=== PATIENT | male | born 1990 | race Caucasian/White ===

== ENCOUNTER 2024-11-26 18:59 | Inpatient (IN) | payer BC, OTHER ==
[2024-11-26 20:37] LABS: Basophils # (A) 0.05 10*3/uL (0.00-0.10); Basophils % (A) 0.3 %; Eosinophils # (A) 0.02 10*3/uL (0.04-0.35); Eosinophils % (A) 0.1 %; HCT 46.7 % (39.6-50.0); HGB 15.4 g/dL (13.0-17.0); Lymphocytes % (A) 9.6 %; MCH 25.9 pg (27.0-32.0); MCV 78.5 fL (80.0-97.0); Monocytes # (A) 0.59 10*3/uL (0.20-1.00); Monocytes % (A) 3.6 %; Neutrophils # (A) 14.26 10*3/uL (1.80-7.70); Platelet Count 450 10*3/uL (140-440); RBC 5.95 10*6/uL (4.40-5.60); RDW 12.8 % (11.5-14.5); WBC 16.59 10*3/uL (4.50-10.00)
[2024-11-26 20:48] LABS: ALT 41 U/L (4-49); African American GFR (CKD) >90 (>60 ml/min/1.73 sqM); Amylase 42 U/L (30-110); Anion Gap 9 mmol/L; Blood Urea Nitrogen 11 mg/dL (9-20); Calcium 9.8 mg/dL (8.4-10.2); Carbon Dioxide 30 mmol/L (22-30); Chloride 100 mmol/L (98-107); Glucose 174 mg/dL (74-99); Lipase 63 U/L (23-300); Non-African American GFR(CKD) >90 (>60 ml/min/1.73 sqM); Sodium 139 mmol/L (137-145); Total Bilirubin 1.3 mg/dL (0.2-1.3)
[2024-11-26 20:51] LABS: AST 43 U/L (17-59); Albumin 4.8 g/dL (3.5-5.0); Alkaline Phosphatase 107 U/L (38-126); Appearance,Urine Cloudy (Clear); Bilirubin,Urine Negative (Negative); Blood,Urine Negative (Negative); Color,Urine Yellow; Glucose,Urine (UA) Trace (Negative); Ketones,Urine 1+ (Negative); Leukocyte Esterase,Urine Negative (Negative); Mucus,Urine Many /hpf; Nitrite,Urine Negative (Negative); PH, Urine 6.5 (5.0-8.0); Potassium 5.4 mmol/L (3.5-5.1); Protein,Urine 1+ (Negative); RBC,Urine <1 /hpf (0-5); Specific Gravity,Urine 1.037 (1.001-1.035); Squamous Epithelial Cell,Urine 4 /hpf (0-4); Total Protein 8.9 g/dL (6.3-8.2); WBC,Urine 9 /hpf (0-5)
[2024-11-26] MEDS: SODIUM ZIRCONIUM CYCLOSILICATE 10 GM PACKET PO ONE (21:19)
--- NOTE | 2024-11-26 21:21 | ED ---
Abdominal Pain HPI - General Source: patient, RN notes reviewed Mode of arrival: ambulatory Limitations: no limitations - History of Present Illness MD Complaint: abdominal pain Onset/Timin -: days(s) Location: diffuse Severity scale (1-10): 8 Quality: stabbing Consistency: intermittent Worsens With: eating Context: possible food poisoning Associated Symptoms: nausea, vomiting, constipation <Olvin Mcintosh - Last Filed: 11/27/24 11:17> <Taty Aguilera - Last Filed: 12/02/24 14:35> - General Chief Complaint: Abdominal Pain Stated Complaint: abd pain Time Seen by Provider: 11/26/24 19:17 - History of Present Illness Initial Comments: This is a 34-year-old male presenting for abdominal pain (8/10) since last night. Patient states pain is diffuse and stabbing with associated postprandial nausea/vomiting. Patient states he was able to have a small bowel movement today otherwise noting constipation for the past 3 days. Patient endorses some concern for food poisoning after eating pizza. Denies [id number] medication use. Denies chest pain, dyspnea, hematemesis, diarrhea, hematochezia, melena, anorexia. (Olvin Mcintosh) - Related Data Home Medications Medication Instructions Recorded Confirmed No Known Home Medications 11/27/24 11/27/24 Allergies Allergy/AdvReac Type Severity Reaction Status Date / Time No Known Allergies Allergy Verified 11/27/24 09:21 Review of Systems ROS Other: All systems not noted in ROS Statement are negative. <Olvin Mcintosh - Last Filed: 11/27/24 11:17> ROS Other: All systems not noted in ROS Statement are negative. <Taty Aguilera - Last Filed: 12/02/24 14:35> ROS Statement: Those systems with pertinent positive or pertinent negative responses have been documented in the HPI. Past Medical History Past Medical History: No Reported History History of Any Multi-Drug Resistant Organisms: None Reported Additional Past Surgical History / Comment(s): TUBES IN EARS Past Psychological History: Anxiety Past Alcohol Use History: None Reported Past Drug Use History: None Reported <Olvin Mcintosh - Last Filed: 11/27/24 11:17> General Exam Limitations: no limitations General appearance: alert, in no apparent distress Head exam: Present: atraumatic, normocephalic, normal inspection Eye exam: Present: normal appearance, PERRL, EOMI. Absent: scleral icterus, conjunctival injection, periorbital swelling ENT exam: Present: normal exam, mucous membranes moist Neck exam: Present: normal inspection. Absent: tenderness, meningismus, lymphadenopathy Respiratory exam: Present: normal lung sounds bilaterally. Absent: respiratory distress, wheezes, rales, rhonchi, stridor Cardiovascular Exam: Present: regular rate, normal rhythm, normal heart sounds. Absent: systolic murmur, diastolic murmur, rubs, gallop, clicks GI/Abdominal exam: Present: soft, distended, diminished bowel sounds, hypoactive bowel sounds. Absent: tenderness (Nontender throughout with palpation), guarding, rebound, rigid Extremities exam: Present: normal inspection, full ROM, normal capillary refill. Absent: tenderness, pedal edema, joint swelling, calf tenderness Back exam: Present: normal inspection Neurological exam: Present: alert, oriented X3, CN II-XII intact Psychiatric exam: Present: normal affect, normal mood Skin exam: Present: warm, dry, intact, normal color. Absent: rash <Olvin Mcintosh - Pravin Filed: 11/27/24 11:17> Course Vital Signs 11/26/24 11/26/24 11/27/24 19:13 23:46 02:00 Temperature 98.2 F Pulse Rate 77 81 80 Respiratory 17 18 20 Rate Blood Pressure 116/76 122/86 124/80 O2 Sat by Pulse 98 99 98 Oximetry 11/27/24 11/27/24 11/27/24 05:39 07:45 10:55 Temperature 98.8 F 97.8 F Pulse Rate 78 80 73 Respiratory 18 18 18 Rate Blood Pressure 117/66 123/68 124/64 O2 Sat by Pulse 97 98 95 Oximetry 11/27/24 11/27/24 11/27/24 12:22 18:00 20:14 Temperature Pulse Rate 79 66 70 Respiratory 16 14 16 Rate Blood Pressure 125/69 106/74 123/82 O2 Sat by Pulse 95 100 97 Oximetry Medical Decision Making - Lab Data Result diagrams: 11/26/24 20:30 11/27/24 02:00 <Olvin Mcintosh - Pravin Filed: 11/27/24 11:17> - Lab Data Result diagrams: 12/02/24 05:31 12/02/24 05:31 <Taty Aguilera - Last Filed: 12/02/24 14:35> - Medical Decision Making Was pt. sent in by a medical professional or institution (RAUL Shin, [employer], urgent care, hospital, or [place] health [facility] facility...) When possible be specific @ -No Did you speak to anyone other than the patient for history (EMS, parent, family, police, friend...)? What history was obtained from this source @ -No Did you review nursing and triage notes (agree or disagree)? Why? @ -I reviewed and agree with nursing and triage notes Were old charts reviewed (outside hosp., previous admission, EMS record, old EKG, old radiological studies, urgent care reports/EKG's, [place] health care facility records)? Report findings @ -No old charts were reviewed Differential Diagnosis (chest pain, altered mental status, abdominal pain women, abdominal pain men, vaginal bleeding, weakness, fever, dyspnea, syncope, headache, dizziness, GI bleed, back pain, seizure, CVA, palpatations, mental health, musculoskeletal)? @ -Differential Abdominal Pain Men: Appendicitis, cholecystitis, diverticulosis, ischemic bowel, pancreatitis, hepatitis, UTI, gastroenteritis, AAA, incarcerated hernia, bowel obstruction, constipation, inflammatory bowel, hepatitis, peptic ulcer disease, splenic infarction, perforated viscus, testicular torsion, this is not meant to be an all-inclusive list EKG interpreted by me (3pts min.). @ -Not done X-rays interpreted by me (1pt min.). @ - KUB shows mildly dilated left upper quadrant small bowel loop with air-fluid level indicating possible developing partial small bowel obstruction. CT interpreted by me (1pt min.). 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 Small bowel obstruction also noted. Hepatic steatosis and diffuse colonic diverticulosis. U/S interpreted by me (1pt. min.). @ -None done What testing was considered but not performed or refused? (CT, X-rays, U/S, labs)? Why? @ -None What meds were considered but not given or refused? Why? @ -None Did you discuss the management of the patient with other professionals (professionals i.e. RAUL Shin, [employer], lab, RT, psych nurse, social work manager, cutter operator asbestos shingle, teacher, conservation officer, casework manager)? Give summary @ -No Was smoking cessation discussed for >3mins.? @ -No Was critical care preformed (if so, how long)? @ -No Were there social determinants of health that impacted care today? How? (Homelessness, low income, unemployed, alcoholism, drug addiction, transportation, low edu. Level, literacy, decrease access to med. care, retirement, rehab)? @ -No Was there de-escalation of care discussed even if they declined (Discuss DNR or withdrawal of care, Hospice)? DNR status @ -No What co-morbidities impacted this encounter? (DM, HTN, Smoking, COPD, CAD, Cancer, CVA, ARF, Chemo, Hep., AIDS, mental health diagnosis, sleep apnea, morbid obesity)? @ -None Was patient admitted / discharged? Hospital course, mention meds given and route, prescriptions, significant lab abnormalities, going to OR and other pertinent info. @ -However positive for leukocytosis 16.59 with left shift, hyperkalemia 5.4, hyperglycemia 174 and unremarkable UA. Lactic acid, amylase, lipase and LFTs unremarkable. KUB shows mildly dilated left upper quadrant small bowel loop with air-fluid level indicating possible developing partial small bowel obstruction. 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 Small bowel obstruction also noted. Hepatic steatosis and diffuse colonic diverticulosis. Patient initially provided IV normal saline, p.o. Lokelma, magnesium citrate and Bentyl. Care passed to attending Dr. Aguilera prior to radiologist reading of abdominal CT scan. Patient will be admitted to inpatient upon discovery of small bowel obstruction. Discussed patient with Dr. Aguilera. Undiagnosed new problem with uncertain prognosis? @ -No Drug Therapy requiring intensive monitoring for toxicity (Heparin, Nitro, Insulin, Cardizem)? @ -No Were any procedures done? @ -No Diagnosis/symptom? @ -Small bowel obstruction Acute, or Chronic, or Acute on Chronic? @ -Acute Uncomplicated (without systemic symptoms) or Complicated (systemic symptoms)? @ -Uncomplicated Side effects of treatment? @ -No Exacerbation, Progression, or Severe Exacerbation? @ -No Poses a threat to life or bodily function? How? (Chest pain, USA, PR, pneumonia, PE, COPD, DKA, ARF, appy, cholecystitis, CVA, Diverticulitis, Homicidal, Suicidal, threat to staff... and all critical care pts) @ -Small bowel obstruction (Olvin Mcintosh) Patient was presented to and signed out to myself at completion of Ej JERNIGAN's shift pending CT abdomen/pelvis. Of note, patient was presented to myself at time of sign out, after initial workup and treatment had been completed, including administration of bentyl, lokelma and mag citrate. CT read by radiologist as a small gallbladder with abnormal connection to the duodenum may represent cholecystic fistula, small bowel obstruction. Page Dr. Etienne for further recs. Case discussed with Dr. Etienne, who kindly accepted patient for admission. Patient will remain NPO with IV fluids, pain control and IV antibiotics ordered. Updated patient to findings and plan of care, he is agreeable with plan. Patient admitted to Dr. Etienne in stable condition. 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 @ -Acute Uncomplicated (without systemic symptoms) or Complicated (systemic symptoms)? @complicated Side effects of treatment? @ -No Exacerbation, Progression, or Severe Exacerbation? @ -No Poses a threat to life or bodily function? How? (Chest pain, USA, PR, pneumonia, PE, COPD, DKA, ARF, appy, cholecystitis, CVA, Diverticulitis, Homicidal, Suicidal, threat to staff... and all critical care pts) @ -Yes, if left untreated could result in perforation and septic shock (Taty Agiulera) - Lab Data Lab Results 11/26/24 11/26/24 11/26/24 Range/Units 20:30 20:30 20:30 WBC 16.59 H (4.50-10.00) 10*3/uL RBC 5.95 H (4.40-5.60) 10*6/uL Hgb 15.4 (13.0-17.0) g/dL Hct 46.7 (39.6-50.0) % MCV 78.5 L (80.0-97.0) fL MCH 25.9 L (27.0-32.0) pg MCHC 33.0 (32.0-37.0) g/dL Plt Count 450 H (140-440) 10*3/uL MPV 9.0 L (9.5-12.2) fL Immature Gran % (Auto) 0.4 % Neutrophils % 86.0 % Lymphocytes % 9.6 % Monocytes % 3.6 % Eosinophils % 0.1 % Basophils % 0.3 % Immature Gran # 0.07 H (0.00-0.04) 10*3/uL Neutrophils # 14.26 H (1.80-7.70) 10*3/uL Lymphocytes # 1.60 (0.90-5.00) 10*3/uL Monocytes # 0.59 (0.20-1.00) 10*3/uL Eosinophils # 0.02 L (0.04-0.35) 10*3/uL Basophils # 0.05 (0.00-0.10) 10*3/uL Sodium 139 (137-145) mmol/L Potassium 5.4 H (3.5-5.1) mmol/L Chloride 100 (98-107) mmol/L Carbon Dioxide 30 (22-30) mmol/L Anion Gap 9 mmol/L BUN 11 (9-20) mg/dL Creatinine 0.59 L (0.66-1.25) mg/dL Est GFR (CKD-EPI)AfAm >90 (>60 ml/min/1.73 sqM) Est GFR (CKD-EPI)NonAf >90 (>60 ml/min/1.73 sqM) Glucose 174 H (74-99) mg/dL Plasma Lactic Acid Kj (0.7-2.0) mmol/L Calcium 9.8 (8.4-10.2) mg/dL Total Bilirubin 1.3 (0.2-1.3) mg/dL AST 43 (17-59) U/L ALT 41 (4-49) U/L Alkaline Phosphatase 107 (38-126) U/L Total Protein 8.9 H (6.3-8.2) g/dL Albumin 4.8 (3.5-5.0) g/dL Amylase 42 (30-110) U/L Lipase 63 (23-300) U/L Urine Color Yellow Urine Appearance Cloudy (Clear) Urine pH 6.5 (5.0-8.0) Ur Specific [place] 1.037 H (1.001-1.035) Urine Protein 1+ H (Negative) Urine Glucose (UA) Trace H (Negative) Urine Ketones 1+ H (Negative) Urine Blood Negative (Negative) Urine Nitrite Negative (Negative) Urine Bilirubin Negative (Negative) Urine Urobilinogen 3.0 (<2.0) mg/dL Ur Leukocyte Esterase Negative (Negative) Urine RBC <1 (0-5) /hpf Urine WBC 9 H (0-5) /hpf Ur Squamous Epith Cells 4 (0-4) /hpf Urine Mucus Many H (None) /hpf 11/26/24 11/27/24 Range/Units 20:30 02:00 WBC (4.50-10.00) 10*3/uL RBC (4.40-5.60) 10*6/uL Hgb (13.0-17.0) g/dL Hct (39.6-50.0) % MCV (80.0-97.0) fL MCH (27.0-32.0) pg MCHC (32.0-37.0) g/dL Plt Count (140-440) 10*3/uL MPV (9.5-12.2) fL Immature Gran % (Auto) % Neutrophils % % Lymphocytes % % Monocytes % % Eosinophils % % Basophils % % Immature Gran # (0.00-0.04) 10*3/uL Neutrophils # (1.80-7.70) 10*3/uL Lymphocytes # (0.90-5.00) 10*3/uL Monocytes # (0.20-1.00) 10*3/uL Eosinophils # (0.04-0.35) 10*3/uL Basophils # (0.00-0.10) 10*3/uL Sodium (137-145) mmol/L Potassium 4.1 (3.5-5.1) mmol/L Chloride (98-107) mmol/L Carbon Dioxide (22-30) mmol/L Anion Gap mmol/L BUN (9-20) mg/dL Creatinine (0.66-1.25) mg/dL Est GFR (CKD-EPI)AfAm (>60 ml/min/1.73 sqM) Est GFR (CKD-EPI)NonAf (>60 ml/min/1.73 sqM) Glucose (74-99) mg/dL Plasma Lactic Acid Kj 1.5 (0.7-2.0) mmol/L Calcium (8.4-10.2) mg/dL Total Bilirubin (0.2-1.3) mg/dL AST (17-59) U/L ALT (4-49) U/L Alkaline Phosphatase (38-126) U/L Total Protein (6.3-8.2) g/dL Albumin (3.5-5.0) g/dL Amylase (30-110) U/L Lipase (23-300) U/L Urine Color Urine Appearance (Clear) Urine pH (5.0-8.0) Ur Specific [place] (1.001-1.035) Urine Protein (Negative) Urine Glucose (UA) (Negative) Urine Ketones (Negative) Urine Blood (Negative) Urine Nitrite (Negative) Urine Bilirubin (Negative) Urine Urobilinogen (<2.0) mg/dL Ur Leukocyte Esterase (Negative) Urine RBC (0-5) /hpf Urine WBC (0-5) /hpf Ur Squamous Epith Cells (0-4) /hpf Urine Mucus (None) /hpf Disposition Time of Disposition: 02:40 Decision Date: 11/27/24 Decision Time: 02:40 <Olvin Mcintosh - Last Filed: 11/27/24 11:17> <Taty Aguilera - Last Filed: 12/02/24 14:35> Clinical Impression: Small bowel obstruction Disposition: ADMITTED IP TO THIS [facility] Condition: Stable
[2024-11-26] MEDS: SODIUM CHLORIDE 0.9% 1,000 ML IV STA (21:36)
[2024-11-26] MEDS: DICYCLOMINE 20 MG TAB PO STA (21:37)
--- NOTE | 2024-11-26 21:37 | XR ---
EXAMINATION TYPE: XR KUB DATE OF EXAM: 11/26/2024 9:27 PM COMPARISON: None. CLINICAL INDICATION: Male, 34 years old with history of Diffuse abdominal pain, postprandial nausea; PHH, pain TECHNIQUE: One radiographic view of the abdomen was obtained. FINDINGS: Nonspecific bowel gas pattern with mildly dilated left upper quadrant small bowel loop with air-fluid level. Small bowel loop measures up to 3.5 cm in diameter. There is indeterminate hypodens ity layering material in this region, recommend correlation for any recent ingested material. Partial ly visualized lower lungs demonstrate no acute pathology. No acute osseous abnormality. IMPRESSION: Nonspecific bowel gas pattern with mildly dilated left upper quadrant small bowel loop with associate d air-fluid level. Findings could reflect enteritis and/or developing partial small bowel obstruction . Consider further evaluation with dedicated CT abdomen/pelvis with IV contrast if clinically warrant ed. [facility], , 11/26/2024 9:35 PM
[2024-11-26] MEDS: MAGNESIUM CITRATE 296 ML BOTTLE PO ONE (22:25)
[2024-11-27] MEDS: FAMOTIDINE 20 MG/2 ML VIAL IV STA (02:04)
[2024-11-27] MEDS: ACETAMINOPHEN IV (For NPO) 1,000 MG in EMPTY BAG 1 BAG IVPB STA (02:26)
--- NOTE | 2024-11-27 02:34 | CT ---
EXAM: CT Abdomen and Pelvis With Intravenous Contrast CLINICAL HISTORY: ITS.REASON CT Reason: Abdominal pain, postprandial nausea/vomiting TECHNIQUE: Axial computed tomography images of the abdomen and pelvis with intravenous contrast. CTDI is 100.2 mGy and DLP is 3457.9 mGy-cm. This CT exam was performed using one or more of the following dose reduction techniques: automated exposure control, adjustment of the mA and/or kV according to patient size, and/or use of iterative reconstruction technique. COMPARISON: No relevant prior studies available. FINDINGS: Lung bases: Unremarkable. No mass. No consolidation. ABDOMEN: Liver: Hepatic steatosis. Mild hepatomegaly. Gallbladder and bile ducts: There appears to be a small gallbladder with an abnormal connection to the adjacent duodenum. Coronal series 202 images 51-52. 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 No calcified gallstone. No significant surrounding inflammatory changes. No ductal dilation. Pancreas: Unremarkable. No mass. No ductal dilation. Spleen: Unremarkable. No splenomegaly. Adrenals: Unremarkable. No mass. Kidneys and ureters: Unremarkable. No solid mass. No hydronephrosis. Stomach and bowel: Dilated small bowel loops with air-fluid levels. Distal loops collapsed. Transition point in the left lower quadrant. Stomach is moderately distended with air-fluid level and minimal oral contrast. Diffuse colonic diverticulosis, predominantly of the distal colon. No mucosal thickening. PELVIS: Appendix: Normal appendix. Bladder: Unremarkable. No mass. Reproductive: Unremarkable as visualized. ABDOMEN and PELVIS: Intraperitoneal space: Unremarkable. No free air. No significant fluid collection. Bones/joints: No acute fracture. No dislocation. Soft tissues: Unremarkable. Vasculature: Unremarkable. No abdominal aortic aneurysm. Lymph nodes: Unremarkable. No enlarged lymph nodes. IMPRESSION: 1. There appears to be a small gallbladder with an abnormal connection to the adjacent duodenum. 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 2. Small bowel obstruction. 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 3. Hepatic steatosis. Mild hepatomegaly. 4. Diffuse colonic diverticulosis, predominantly of the distal colon. <MYCVCSECTION> Communications: 11/27/24 02:43 Verify Receipt Verified receipt with Dr. Aguilera on 11/27 02:46 (-04:00)
[2024-11-27] MEDS ORDERED: NALOXONE 0.4 MG/ML 1 ML VIAL IV PRN (03:11)
[2024-11-27] MEDS: cefTRIAXone IN SWFI 1,000 MG/10 ML SYRINGE IVP STA (03:29)
[2024-11-27] MEDS: metroNIDAZOLE-NS PMX 500 MG in SALINE 1 100ML.BAG IVPB STA (03:31)
[2024-11-27] MEDS: SODIUM CHLORIDE 0.9% 1,000 ML IV SCH (03:31)
--- NOTE | 2024-11-27 07:53 | P.GSHP ---
History of Present Illness H&P Date: 11/27/24 This is a 34-year-old male presenting for abdominal pain since last night. Patient states pain is diffuse and stabbing with associated postprandial nausea/vomiting. Patient states he was able to have a small bowel movement today otherwise noting constipation for the past 3 days. Patient endorses some concern for food poisoning after eating pizza. Denies [id number] medication use. Denies chest pain, dyspnea, hematemesis, diarrhea, hematochezia, melena, anorexia. He had a CT-AP which was concerning for cholecystenteric fistula and possible bowel obstruction related to Gallstone Ileus. Review of Systems ROS Other: All systems not noted in ROS Statement are negative. Past Medical History Past Medical History: No Reported History History of Any Multi-Drug Resistant Organisms: None Reported Additional Past Surgical History / Comment(s): TUBES IN EARS Past Psychological History: Anxiety Past Alcohol Use History: None Reported Past Drug Use History: None Reported General Exam Limitations: no limitations General appearance: alert, in no apparent distress Head exam: Present: atraumatic, normocephalic, normal inspection Eye exam: Present: normal appearance, PERRL, EOMI. Absent: scleral icterus, conjunctival injection, periorbital swelling ENT exam: Present: normal exam, mucous membranes moist Neck exam: Present: normal inspection. Absent: tenderness, meningismus, lymphadenopathy Respiratory exam: Present: normal lung sounds bilaterally. Absent: respiratory distress, wheezes, rales, rhonchi, stridor Cardiovascular Exam: Present: regular rate, normal rhythm, normal heart sounds. Absent: systolic murmur, diastolic murmur, rubs, gallop, clicks GI/Abdominal exam: Present: soft, distended, diminished bowel sounds, hypoactive bowel sounds. Absent: tenderness (Nontender throughout with palpation), gu arding, rebound, rigid Extremities exam: Present: normal inspection, full ROM, normal capillary refill. Absent: tenderness, pedal edema, joint swelling, calf tenderness Back exam: Present: normal inspection Neurological exam: Present: alert, oriented X3, CN II-XII intact Psychiatric exam: Present: normal affect, normal mood Skin exam: Present: warm, dry, intact, normal color. Absent: rash 34 year old male with abdominal pain. CT-AP concerning for Cholecystenteric Fistula and Bowel Obstruction/Gallstone Ileus -NPO -If patient continues to vomit, will need nasogastric tube -Small Bowel Follow Through Ordered -Zosyn -IV fluids -Pain and Nausea Control -Further recs pending SBFT Sal Etienne [facility] [phone] Past Medical History Past Medical History: No Reported History History of Any Multi-Drug Resistant Organisms: None Reported Additional Past Surgical History / Comment(s): TUBES IN EARS Past Psychological History: Anxiety Past Alcohol Use History: None Reported Past Drug Use History: None Reported Medications and Allergies Home Medications Medication Instructions Recorded Confirmed Type Ibuprofen [Motrin] 800 mg PO Q8HR PRN #21 tab 02/15/16 Rx Ranitidine HCl [Zantac] 150 mg PO BID #28 tab 02/15/16 Rx Allergies Allergy/AdvReac Type Severity Reaction Status Date / Time No Known Allergies Allergy Verified 11/26/24 19:16 Surgical - Exam Vital Signs Temp Pulse Resp BP Pulse Ox 98.2 F 77 17 116/76 98 11/26/24 19:13 11/26/24 19:13 11/26/24 19:13 11/26/24 19:13 11/26/24 19:13 Results - Labs 11/26/24 20:30 11/27/24 02:00 Abnormal Lab Results - Last 24 Hours (Table) 11/26/24 11/26/24 11/26/24 Range/Units 20:30 20:30 20:30 WBC 16.59 H (4.50-10.00) 10*3/uL RBC 5.95 H (4.40-5.60) 10*6/uL MCV 78.5 L (80.0-97.0) fL MCH 25.9 L (27.0-32.0) pg Plt Count 450 H (140-440) 10*3/uL MPV 9.0 L (9.5-12.2) fL Immature Gran # 0.07 H (0.00-0.04) 10*3/uL Neutrophils # 14.26 H (1.80-7.70) 10*3/uL Eosinophils # 0.02 L (0.04-0.35) 10*3/uL Potassium 5.4 H (3.5-5.1) mmol/L Creatinine 0.59 L (0.66-1.25) mg/dL Glucose 174 H (74-99) mg/dL Total Protein 8.9 H (6.3-8.2) g/dL Ur Specific [place] 1.037 H (1.001-1.035) Urine Protein 1+ H (Negative) Urine Glucose (UA) Trace H (Negative) Urine Ketones 1+ H (Negative) Urine WBC 9 H (0-5) /hpf Urine Mucus Many H (None) /hpf Diabetes panel 11/26/24 11/27/24 Range/Units 20:30 02:00 Sodium 139 (137-145) mmol/L Potassium 5.4 H 4.1 (3.5-5.1) mmol/L Chloride 100 (98-107) mmol/L Carbon Dioxide 30 (22-30) mmol/L BUN 11 (9-20) mg/dL Creatinine 0.59 L (0.66-1.25) mg/dL Glucose 174 H (74-99) mg/dL Calcium 9.8 (8.4-10.2) mg/dL AST 43 (17-59) U/L ALT 41 (4-49) U/L Alkaline Phosphatase 107 (38-126) U/L Total Protein 8.9 H (6.3-8.2) g/dL Albumin 4.8 (3.5-5.0) g/dL Calcium panel 11/26/24 Range/Units 20:30 Calcium 9.8 (8.4-10.2) mg/dL Albumin 4.8 (3.5-5.0) g/dL Pituitary panel 11/26/24 11/27/24 Range/Units 20:30 02:00 Sodium 139 (137-145) mmol/L Potassium 5.4 H 4.1 (3.5-5.1) mmol/L Chloride 100 (98-107) mmol/L Carbon Dioxide 30 (22-30) mmol/L BUN 11 (9-20) mg/dL Creatinine 0.59 L (0.66-1.25) mg/dL Glucose 174 H (74-99) mg/dL Calcium 9.8 (8.4-10.2) mg/dL Adrenal panel 11/26/24 11/27/24 Range/Units 20:30 02:00 Sodium 139 (137-145) mmol/L Potassium 5.4 H 4.1 (3.5-5.1) mmol/L Chloride 100 (98-107) mmol/L Carbon Dioxide 30 (22-30) mmol/L BUN 11 (9-20) mg/dL Creatinine 0.59 L (0.66-1.25) mg/dL Glucose 174 H (74-99) mg/dL Calcium 9.8 (8.4-10.2) mg/dL Total Bilirubin 1.3 (0.2-1.3) mg/dL AST 43 (17-59) U/L ALT 41 (4-49) U/L Alkaline Phosphatase 107 (38-126) U/L Total Protein 8.9 H (6.3-8.2) g/dL Albumin 4.8 (3.5-5.0) g/dL
[2024-11-27] MEDS: ONDANSETRON 4 MG/2 ML VIAL IVP PRN (08:07)
[2024-11-27] MEDS: PIPERACILLIN-TAZOBACTAM 3.375 GM in SODIUM CHLORIDE 0.9% 100 ML IVPB SCH (08:08)
[2024-11-27] MEDS: PANTOPRAZOLE 40 MG/10 ML VIAL IV SCH (08:08)
[2024-11-27] MEDS: HYDROmorphone 0.5 MG/0.5 ML SYRINGE IVP PRN (10:59)
--- NOTE | 2024-11-27 12:16 | P.CONS ---
History of Present Illness - Reason for Consult Consult date: 11/27/24 Medical management - History of Present Illness History of present illness; patient is 34-year-old gentleman with no significant past medical history presents to the ER because of abdominal pain. Patient was having generalized abdominal pain associated with nausea and vomiting. Patient also having constipation. No complaint of any blood in the stools. There was no complaint of fever or chills. because of abdominal pain, patient came to the ER Initial lab work done in the ER showed WBC 16.59, hemoglobin 15.4, platelet count 450, sodium 139, potassium 5.4, BUN 11, creatinine 0.59, glucose 174, total protein 8.9, Urine analysis done showed negative nitrite, negative leukocyte Estrace. X-ray KUB done showed nonspecific bowel gas pattern with mildly dilated upper quadrant small bowel loop with associated air-fluid level. 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 Small bowel obstruction with possible gallstone ileus Patient admitted to internal medicine service REVIEW OF SYSTEMS: CONSTITUTIONAL: No fever, no malaise, no fatigue. HEENT: No recent visual problems or hearing problems. Denied any sore throat. CARDIOVASCULAR: No chest pain, orthopnea, PND, no palpitations, no syncope. PULMONARY: No shortness of breath, no cough, no hemoptysis. GASTROINTESTINAL: As mentioned above NEUROLOGICAL: No headaches, no weakness, no numbness. HEMATOLOGICAL: Denies any bleeding or petechiae. GENITOURINARY: Denies any burning micturition, frequency, or urgency. MUSCULOSKELETAL/RHEUMATOLOGICAL: Denies any joint pain, swelling, or any muscle pain. ENDOCRINE: Denies any polyuria or polydipsia. The rest of the 14-point review of systems is negative. PHYSICAL EXAMINATION: GENERAL: The patient is alert and oriented x3, not in any acute distress. Well d eveloped, well nourished. HEENT: Pupils are round and equally reacting to light. EOMI. No scleral icterus. No conjunctival pallor. Normocephalic, atraumatic. No pharyngeal erythema. No thyromegaly. CARDIOVASCULAR: S1 and S2 present. No murmurs, rubs, or gallops. PULMONARY: Chest is clear to auscultation, no wheezing or crackles. ABDOMEN: Soft, tenderness right upper quadrant, normoactive bowel sounds. No palpable organomegaly. MUSCULOSKELETAL: No joint swelling or deformity. EXTREMITIES: No cyanosis, clubbing, or pedal edema. NEUROLOGICAL: Gross neurological examination did not reveal any focal deficits. SKIN: No rashes. 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 Continue same treatment. Continue with s ymptomatic treatment. Resume home medication. Monitor labs and vitals. DVT and GI prophylaxis. Further recommendations as per clinical course of the patient Dictation was produced using [employer] dictation software. please excuse any grammatical, word or spelling errors. Past Medical History Past Medical History: No Reported History History of Any Multi-Drug Resistant Organisms: None Reported Additional Past Surgical History / Comment(s): TUBES IN EARS Past Psychological History: Anxiety Past Alcohol Use History: None Reported Past Drug Use History: None Reported Medications and Allergies Home Medications Medication Instructions Recorded Confirmed Type No Known Home Medications 11/27/24 11/27/24 History Allergies Allergy/AdvReac Type Severity Reaction Status Date / Time No Known Allergies Allergy Verified 11/27/24 09:21 Physical Exam Vitals: Vital Signs Temp Pulse Resp BP Pulse Ox 11/27/24 07:45 80 18 123/68 98 11/27/24 05:39 98.8 F 78 18 117/66 97 11/27/24 02:00 80 20 124/80 98 11/26/24 23:46 81 18 122/86 99 11/26/24 19:13 98.2 F 77 17 116/76 98 Intake and Output 11/26/24 11/27/24 11/27/24 22:59 06:59 14:59 Other: Weight 60.781 kg Results CBC & Chem 7: 11/26/24 20:30 11/27/24 02:00 Labs: Abnormal Lab Results - Last 24 Hours (Table) 11/26/24 11/26/24 11/26/24 Range/Units 20:30 20:30 20:30 WBC 16.59 H (4.50-10.00) 10*3/uL RBC 5.95 H (4.40-5.60) 10*6/uL MCV 78.5 L (80.0-97.0) fL MCH 25.9 L (27.0-32.0) pg Plt Count 450 H (140-440) 10*3/uL MPV 9.0 L (9.5-12.2) fL Immature Gran # 0.07 H (0.00-0.04) 10*3/uL Neutrophils # 14.26 H (1.80-7.70) 10*3/uL Eosinophils # 0.02 L (0.04-0.35) 10*3/uL Potassium 5.4 H (3.5-5.1) mmol/L Creatinine 0.59 L (0.66-1.25) mg/dL Glucose 174 H (74-99) mg/dL Total Protein 8.9 H (6.3-8.2) g/dL Ur Specific [place] 1.037 H (1.001-1.035) Urine Protein 1+ H (Negative) Urine Glucose (UA) Trace H (Negative) Urine Ketones 1+ H (Negative) Urine WBC 9 H (0-5) /hpf Urine Mucus Many H (None) /hpf
[2024-11-28 09:27] LABS: Basophils # (A) 0.05 X 10*3/uL (0.00-0.10); Basophils % (A) 0.3 %; Eosinophils # (A) 0.31 X 10*3/uL (0.04-0.35); Eosinophils % (A) 1.9 %; HCT 44.1 % (39.6-50.0); HGB 13.8 g/dL (13.0-17.0); Lymphocytes # (A) 3.75 X 10*3/uL (0.90-5.00); Lymphocytes % (A) 23.1 %; MCH 25.6 pg (27.0-32.0); MCHC 31.3 g/dL (32.0-37.0); MCV 81.8 FL (80.0-97.0); Mean Platelet Volume 9.6 FL (9.5-12.2); Monocytes # (A) 1.12 X 10*3/uL (0.20-1.00); Monocytes % (A) 6.9 %; NRBC Per 100 WBC 0 X 10*3/uL (0.00-0.01); Neutrophils # (A) 10.92 X 10*3/uL (1.80-7.70); Neutrophils % (A) 67.5 %; Platelet Count 424 X 10*3/uL (140-440); RBC 5.39 X 10*6/uL (4.40-5.60); RDW 13.1 % (11.5-14.5)
[2024-11-28 09:56] LABS: ALT 34 U/L (10-49); AST 28 U/L (14-35); Albumin/Globulin Ratio 1.38 Ratio (1.60-3.17); Alkaline Phosphatase 104 U/L (41-126); BUN/Creat Ratio 12.29 Ratio (12.00-20.00); Bilirubin, Conjugated 0.32 mg/dL (0.20-0.40); Bilirubin,Unconjugated 0.48 mg/dL (0.20-1.00); Blood Urea Nitrogen 8.6 mg/dL (9.0-27.0); Calcium 8.8 mg/dL (8.7-10.3); Carbon Dioxide 23.2 mmol/L (21.6-31.8); Chloride 104 mmol/L (96-109); Globulin 2.9 g/dL (1.6-3.3); Glucose 107 mg/dL (70-110); Potassium 4.1 mmol/L (3.5-5.5); Sodium 140 mmol/L (135-145); Total Bilirubin 0.8 mg/dL (0.3-1.2); Total Protein 6.9 g/dL (6.2-8.2)
--- NOTE | 2024-11-28 11:00 | P.PN ---
Progress Note - Text Progress Note Date: 11/28/24 No acute events overnight. Denies nausea and vomiting. WBC remains elevated VSS General-NAD CVS-RRR Lungs-NLB Abdomen-soft, NTND Ext- no edema 34 year old male with abdominal pain. CT-AP concerning for Cholecystenteric Fistula and Bowel Obstruction/Gallstone Ileus -NPO -If patient starts vomiting, will need nasogastric tube -Small Bowel Follow Through Ordered -HIDA scan ordered -Zosyn -IV fluids -Pain and Nausea Control -Further recs pending SBFT/HIDA [facility] [phone]
--- NOTE | 2024-11-28 12:56 | P.PN ---
Subjective Progress Note Date: 11/28/24 patient is 34-year-old gentleman with no significant past medical history presents to the ER because of abdominal pain. Patient was having generalized abdominal pain associated with nausea and vomiting. Patient also having constipation. No complaint of any blood in the stools. There was no complaint of fever or chills. because of abdominal pain, patient came to the ER Initial lab work done in the ER showed WBC 16.59, hemoglobin 15.4, platelet count 450, sodium 139, potassium 5.4, BUN 11, creatinine 0.59, glucose 174, total protein 8.9, Urine analysis done showed negative nitrite, negative leukocyte Estrace. X-ray KUB done showed nonspecific bowel gas pattern with mildly dilated upper quadrant small bowel loop with associated air-fluid level. 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 Small bowel obstruction with possible gallstone ileus Patient admitted to internal medicine service 11/28. Patient seen and examined. Labs reviewed showed WBC 16.2, hemoglobin 13.8, sodium 140, potassium 4.1, carbon dioxide 23.2, BUN 8.6, creatinine 0.7, p atient states abdominal pain is slightly improved. Passing small amount of gas REVIEW OF SYSTEMS: CONSTITUTIONAL: No fever, no malaise,. CARDIOVASCULAR: No chest pain, no palpitations, no syncope. PULMONARY: No shortness of breath, no cough, GASTROINTESTINAL: no nausea, no vomiting, NEUROLOGICAL: No headaches, no weakness, PHYSICAL EXAMINATION: GENERAL: The patient is alert and oriented x3, not in any acute distress. Well developed, well nourished. HEENT: Pupils are round and equally reacting to light. EOMI. No scleral icterus. No conjunctival pallor. Normocephalic, atraumatic. No pharyngeal erythema. No thyromegaly. CARDIOVASCULAR: S1 and S2 present. No murmurs, rubs, or gallops. PULMONARY: Chest is clear to auscultation, no wheezing or crackles. ABDOMEN: Soft, nontender, nondistended, normoactive bowel sounds. No palpable organomegaly. MUSCULOSKELETAL: No joint swelling or deformity. EXTREMITIES: No cyanosis, clubbing, or pedal edema. NEUROLOGICAL: Gross neurological examination did not reveal any focal deficits. SKIN: No rashes. Assessment and plan GENERAL: The patient is alert and oriented x3, not in any acute distress. Well developed, well nourished. HEENT: Pupils are round and equally reacting to light. EOMI. No scleral icterus. No conjunctival pallor. Normocephalic, atraumatic. No pharyngeal erythema. No thyromegaly. CARDIOVASCULAR: S1 and S2 present. No murmurs, rubs, or gallops. PULMONARY: Chest is clear to auscultation, no wheezing or crackles. ABDOMEN: Soft, tenderness right upper quadrant, normoactive bowel sounds. No palpable organomegaly. MUSCULOSKELETAL: No joint swelling or deformity. EXTREMITIES: No cyanosis, clubbing, or pedal edema. NEUROLOGICAL: Gross neurological examination did not reveal any focal deficits. SKIN: No rashes. 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 Continue same treatment. Continue with symptomatic treatment. Resume home medication. Monitor labs and vitals. DVT and GI prophylaxis. Further recommendations as per clinical course of the patient Dictation was produced using [employer] dictation software. please excuse any grammatical, word or spelling errors. Objective - Vital Signs Vital signs: Vital Signs Temp 98.2 F 11/28/24 08:00 Pulse 77 11/28/24 08:00 Resp 18 11/28/24 08:00 BP 121/71 11/28/24 08:00 Pulse Ox 97 11/28/24 08:00 FiO2 Intake & Output 11/27/24 11/28/24 11/28/24 18:59 06:59 18:59 Weight 60.781 kg Other: Voiding Method Toilet Toilet # Voids 2 - Labs CBC & Chem 7: 11/28/24 04:00 11/28/24 04:00 Labs: Abnormal Lab Results - Last 24 Hours (Table) 11/28/24 11/28/24 Range/Units 04:00 04:00 WBC 16.20 H (4.50-10.00) X 10*3/uL MCH 25.6 L (27.0-32.0) pg MCHC 31.3 L (32.0-37.0) g/dL Immature Gran # 0.05 H (0.00-0.04) X 10*3/uL Neutrophils # 10.92 H (1.80-7.70) X 10*3/uL Monocytes # 1.12 H (0.20-1.00) X 10*3/uL Anion Gap 12.80 H (4.00-12.00) mmol/L BUN 8.6 L (9.0-27.0) mg/dL Albumin/Globulin Ratio 1.38 L (1.60-3.17) Ratio
[2024-11-29 08:30] LABS: ALT 31 U/L (10-49); AST 23 U/L (14-35); Albumin 4.1 g/dL (3.8-4.9); Albumin/Globulin Ratio 1.46 Ratio (1.60-3.17); Alkaline Phosphatase 102 U/L (41-126); BUN/Creat Ratio 11.29 Ratio (12.00-20.00); Blood Urea Nitrogen 7.9 mg/dL (9.0-27.0); Calcium 8.9 mg/dL (8.7-10.3); Carbon Dioxide 24.4 mmol/L (21.6-31.8); Chloride 102 mmol/L (96-109); Globulin 2.8 g/dL (1.6-3.3); Glucose 85 mg/dL (70-110); Potassium 4.2 mmol/L (3.5-5.5); Sodium 139 mmol/L (135-145); Total Bilirubin 0.9 mg/dL (0.3-1.2); Total Protein 6.9 g/dL (6.2-8.2)
[2024-11-29 09:31] LABS: Basophils # (A) 0.03 X 10*3/uL (0.00-0.10); Basophils % (A) 0.2 %; HCT 44.5 % (39.6-50.0); HGB 13.9 g/dL (13.0-17.0); Lymphocytes # (A) 3.47 X 10*3/uL (0.90-5.00); Lymphocytes % (A) 23.4 %; MCH 25.5 pg (27.0-32.0); MCHC 31.2 g/dL (32.0-37.0); MCV 81.7 FL (80.0-97.0); Mean Platelet Volume 9.9 FL (9.5-12.2); Monocytes # (A) 1.07 X 10*3/uL (0.20-1.00); Monocytes % (A) 7.2 %; NRBC Per 100 WBC 0 X 10*3/uL (0.00-0.01); Neutrophils # (A) 9.91 X 10*3/uL (1.80-7.70); Neutrophils % (A) 66.9 %; Platelet Count 404 X 10*3/uL (140-440); RBC 5.45 X 10*6/uL (4.40-5.60); WBC 14.82 X 10*3/uL (4.50-10.00)
--- NOTE | 2024-11-29 12:42 | NM ---
EXAMINATION TYPE: NM hepatobiliary wo EF DATE OF EXAM: 11/29/2024 COMPARISON: CT abdomen and pelvis 3 days earlier CLINICAL INDICATION: Male, 34 years old with history of Cholecystitis; epigastric and abdominal pain with nausea and vomiting. TECHNIQUE: After the intravenous administration of 5.5 mCi Tc 99m Mebrofenin hepatobiliary scintigrap hy is performed. Immediate images post injection. FINDINGS: Normal excretion from liver into bowel. Gallbladder not seen which is noted surgically absent. No ext ravasation identified to suggest bile leak. IMPRESSION: Exam is within normal limits after cholecystectomy. [facility], , 11/29/2024 12:39 PM
--- NOTE | 2024-11-29 14:06 | P.PN ---
Subjective Progress Note Date: 11/29/24 patient is 34-year-old gentleman with no significant past medical history presents to the ER because of abdominal pain. Patient was having generalized abdominal pain associated with nausea and vomiting. Patient also having constipation. No complaint of any blood in the stools. There was no complaint of fever or chills. because of abdominal pain, patient came to the ER Initial lab work done in the ER showed WBC 16.59, hemoglobin 15.4, platelet count 450, sodium 139, potassium 5.4, BUN 11, creatinine 0.59, glucose 174, total protein 8.9, Urine analysis done showed negative nitrite, negative leukocyte Estrace. X-ray KUB done showed nonspecific bowel gas pattern with mildly dilated upper quadrant small bowel loop with associated air-fluid level. 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 Small bowel obstruction with possible gallstone ileus Patient admitted to internal medicine service 11/28. Patient seen and examined. Labs reviewed showed WBC 16.2, hemoglobin 13.8, sodium 140, potassium 4.1, carbon dioxide 23.2, BUN 8.6, creatinine 0.7, p atient states abdominal pain is slightly improved. Passing small amount of gas 11/29. Patient seen examined. Still having abdominal pain. HIDA scan done, results pending. REVIEW OF SYSTEMS: CONSTITUTIONAL: No fever, no malaise,. CARDIOVASCULAR: No chest pain, no palpitations, no syncope. PULMONARY: No shortness of breath, no cough, GASTROINTESTINAL: As mentioned above NEUROLOGICAL: No headaches, no weakness, PHYSICAL EXAMINATION: GENERAL: The patient is alert and oriented x3, not in any acute distress. Well developed, well nourished. HEENT: Pupils are round and equally reacting to light. EOMI. No scleral icterus. No conjunctival pallor. Normocephalic, atraumatic. No pharyngeal erythema. No thyromegaly. CARDIOVASCULAR: S1 and S2 present. No murmurs, rubs, or gallops. PULMONARY: Chest is clear to auscultation, no wheezing or crackles. ABDOMEN: Soft, nontender, nondistended, normoactive bowel sounds. No palpable organomegaly. MUSCULOSKELETAL: No joint swelling or deformity. EXTREMITIES: No cyanosis, clubbing, or pedal edema. NEUROLOGICAL: Gross neurological examination did not reveal any focal deficits. SKIN: No rashes. Assessment and plan GENERAL: The patient is alert and oriented x3, not in any acute distress. Well developed, well nourished. HEENT: Pupils are round and equally reacting to light. EOMI. No scleral icterus. No conjunctival pallor. Normocephalic, atraumatic. No pharyngeal erythema. No thyromegaly. CARDIOVASCULAR: S1 and S2 present. No murmurs, rubs, or gallops. PULMONARY: Chest is clear to auscultation, no wheezing or crackles. ABDOMEN: Soft, tenderness right upper quadrant, normoactive bowel sounds. No palpable organomegaly. MUSCULOSKELETAL: No joint swelling or deformity. EXTREMITIES: No cyanosis, clubbing, or pedal edema. NEUROLOGICAL: Gross neurological examination did not reveal any focal deficits. SKIN: No rashes. 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 Continue same treatment. Continue with symptomatic treatment. Resume home medication. Monitor labs and vitals. DVT and GI prophylaxis. Further recommendations as per clinical course of the patient Dictation was produced using [employer] dictation software. please excuse any grammatical, word or spelling errors. Objective - Vital Signs Vital signs: Vital Signs Temp 97.9 F 11/29/24 02:00 Pulse 83 11/29/24 02:00 Resp 18 11/29/24 02:00 BP 114/73 11/29/24 02:00 Pulse Ox 98 11/29/24 02:00 FiO2 Intake & Output 11/28/24 11/29/24 11/29/24 18:59 06:59 18:59 Weight 151.5 kg Other: Voiding Method Toilet Toilet # Voids 3 - Labs CBC & Chem 7: 11/29/24 03:34 11/29/24 03:34 Labs: Abnormal Lab Results - Last 24 Hours (Table) 11/29/24 11/29/24 Range/Units 03:34 03:34 WBC 14.82 H (4.50-10.00) X 10*3/uL MCH 25.5 L (27.0-32.0) pg MCHC 31.2 L (32.0-37.0) g/dL Neutrophils # 9.91 H (1.80-7.70) X 10*3/uL Monocytes # 1.07 H (0.20-1.00) X 10*3/uL Anion Gap 12.60 H (4.00-12.00) mmol/L BUN 7.9 L (9.0-27.0) mg/dL BUN/Creatinine Ratio 11.29 L (12.00-20.00) Ratio Albumin/Globulin Ratio 1.46 L (1.60-3.17) Ratio
--- NOTE | 2024-11-29 15:30 | P.PN ---
Subjective Progress Note Date: 11/29/24 SURGICAL PROGRESS NOTE CHIEF COMPLAINT: Abdominal pain HISTORY OF PRESENT ILLNESS: Patient continues to have left-sided abdominal pain. He reports the pain is slightly improved since admission. He does report nausea he has had small amount of flatus. Denies any bowel movements. Afebrile. WBC 16.2 down to 14.8 hemoglobin 13.9 creatinine 0.7 LFTs are normal total bilirubin 0.9. HIDA scan reports exam is within normal limits after cholecystectomy. PHYSICAL EXAM: VITAL SIGNS: Reviewed. GENERAL: Well-developed in no acute distress. ABDOMEN: Soft. Nondistended. Tenderness palpation of the left side of the abdomen NEUROLOGIC: Alert and oriented. Cranial nerves II through XII grossly intact. ASSESSMENT: 1. Abdominal pain with abdominal pelvis CT scan concerning for cholecystenteric fistula and bowel obstruction PLAN: - Small bowel follow-through scheduled for today. However, patient having cannot tolerate the Gastrografin - Will place NG tube for administration of Gastrografin - If small bowel follow-through cannot be completed today. Placed NG tube to low intermittent suction. - Continue antibiotics - Repeat CBC in a.m. - Continue to monitor Physician Machine Pan Greaser note has been reviewed by physician. Signing provider agrees with the documented findings, assessment, and plan of care. Attestation Patient seen and examined at bedside. Continues to have abdominal pain. Denies any bowel function. Attempt was made for small bowel follow-through study today, however patient did have emesis after Gastrografin. Plan to place nasogastric tube and retry small bowel follow-through. At this point, unclear cause of obstruction. I did review CT with possibility of cholecystic enteric fistula, however no evidence of calcified stone or gallstone causing obstruction. If no significant resolution, will need to consider operative intervention. Andrea Mcqueen, Objective - Vital Signs Vital signs: Vital Signs Temp 97.9 F 11/29/24 02:00 Pulse 83 11/29/24 02:00 Resp 18 11/29/24 02:00 BP 114/73 11/29/24 02:00 Pulse Ox 98 11/29/24 02:00 FiO2 Intake & Output 11/28/24 11/29/24 11/29/24 18:59 06:59 18:59 Weight 151.5 kg Other: Voiding Method Toilet Toilet # Voids 3 - Labs CBC & Chem 7: 11/29/24 03:34 11/29/24 03:34 Labs: Abnormal Lab Results - Last 24 Hours (Table) 11/29/24 11/29/24 Range/Units 03:34 03:34 WBC 14.82 H (4.50-10.00) X 10*3/uL MCH 25.5 L (27.0-32.0) pg MCHC 31.2 L (32.0-37.0) g/dL Neutrophils # 9.91 H (1.80-7.70) X 10*3/uL Monocytes # 1.07 H (0.20-1.00) X 10*3/uL Anion Gap 12.60 H (4.00-12.00) mmol/L BUN 7.9 L (9.0-27.0) mg/dL BUN/Creatinine Ratio 11.29 L (12.00-20.00) Ratio Albumin/Globulin Ratio 1.46 L (1.60-3.17) Ratio
[2024-11-29] MEDS: HYDROmorphone 1 MG/ML 1 ML SYRINGE IVP PRN (15:40)
--- NOTE | 2024-11-29 16:35 | XR ---
EXAMINATION TYPE: XR chest 1V portable DATE OF EXAM: 11/29/2024 CLINICAL INDICATION: Male, 34 years old with history of NG tube placement, progress study. TECHNIQUE: Single AP portable upright view of the chest is obtained. COMPARISON: Chest x-ray from 2016 FINDINGS: There is new nasogastric tube extending below diaphragm. There is mild left basilar linear scarring and/or atelectasis. Right lung is clear. Cardiac silhouette size is stable and upper limits of normal. Osseous structures are intact. IMPRESSION: Successful placement of nasogastric tube. [facility], , 11/29/2024 4:33 PM
[2024-11-30 03:22] LABS: Basophils # (A) 0.04 10*3/uL (0.00-0.10); Basophils % (A) 0.3 %; Eosinophils # (A) 0.19 10*3/uL (0.04-0.35); Eosinophils % (A) 1.4 %; HCT 46.3 % (39.6-50.0); Lymphocytes # (A) 3.02 10*3/uL (0.90-5.00); Lymphocytes % (A) 21.8 %; MCH 26.1 pg (27.0-32.0); MCHC 32.4 g/dL (32.0-37.0); MCV 80.5 fL (80.0-97.0); Mean Platelet Volume 8.9 fL (9.5-12.2); Monocytes # (A) 0.92 10*3/uL (0.20-1.00); Monocytes % (A) 6.6 %; Neutrophils # (A) 9.65 10*3/uL (1.80-7.70); Neutrophils % (A) 69.5 %; Platelet Count 413 10*3/uL (140-440); RBC 5.75 10*6/uL (4.40-5.60); RDW 12.9 % (11.5-14.5); WBC 13.87 10*3/uL (4.50-10.00)
--- NOTE | 2024-11-30 06:44 | FL ---
EXAMINATION TYPE: FL small bowel follow through DATE OF EXAM: 11/30/2024 CLINICAL INDICATION: Male, 34 years old with history of Gallstone Ileus/SBO, TECHNIQUE: A single contrast small bowel follow through is performed utilizing barium. 0 minutes of fluoro time and 9 images obtained. Total dose area product (DAP) in uGy*m?, mGy*cm? (or similar): 0 COMPARISON: CT abdomen and pelvis 3 days ago FINDINGS: Furniture Cleaner image of the abdomen shows persistent dilated small bowel loops in a stepladder fash ion in the central to left abdomen. Exam is suboptimal as patient vomited after drinking contrast. Na sogastric tube is placed after patient vomited at request of ordering Doctor. The small bowel study shows gradual progression of contrast but does not reach colon after 6 hours. There are continued dilated and prominent small bowel loops throughout the abdomen. . IMPRESSION: Suboptimal study. Findings consistent with a mid to distal small bowel structures remain present similar to most recent CT. [facility], , 11/30/2024 6:42 AM
[2024-11-30] MEDS: IOPAMIDOL CONTRAST (ORAL USE) VIAL PO PRN (09:38)
--- NOTE | 2024-11-30 10:38 | CT ---
EXAMINATION TYPE: CT abdomen pelvis wo con DATE OF EXAM: 11/30/2024 COMPARISON: CT abdomen and pelvis 4 days earlier CLINICAL INDICATION: Male, 34 years old with history of abdominal pain,, Evaluate SBO fistula., TECHNIQUE: CT scan of the abdomen and pelvis is performed , patient injected with mL of ., (none if empty) Oral contrast used: with Oral Contrast (none if empty) CT DLP: 2114.4 mGycm, Automated exposure control for dose reduction was used. FINDINGS: LUNG BASES: No significant abnormality is appreciated. LIVER/GB: Liver remains heterogeneously hypodense consistent with diffuse fatty infiltrative hepatoce llular disease. Persistent small gallbladder with nondependent air and indistinct fat plane from clarita cent duodenal sweep suspicious for fistula similar to prior PANCREAS: Moderate atrophy in the pancreatic head redemonstrated. SPLEEN: No significant abnormality is seen. ADRENALS: No significant abnormality is seen. KIDNEYS: No renal stones or hydronephrosis seen bilaterally. BOWEL: Oral contrast reaches the mid to distal ileal loops in the right lower quadrant. There is norm al-appearing appendix identified from the cecum. No abnormal colonic dilatation. Diverticulosis in th e colon is redemonstrated. Small bowel loops remain prominent in the left abdomen and slightly dilate d up to 3.1 cm. There is oval 3.3 cm density possible intraluminal mass appears to be surrounded by c ontrast of soft tissue density in the right lower quadrant seen best coronal image 45 and sagittal im age 46 at site of transition to nondistended distal bowel loops. This is not clearly seen on prior st udy especially at this location. PROSTATE/SEMINAL VESICLES: No gross abnormality seen. LYMPH NODES: No greater than 1cm abdominal or pelvic lymph nodes are appreciated. OSSEOUS STRUCTURES: No significant abnormality is seen. OTHER: No significant additional abnormality is seen. IMPRESSION: Persistent distal small bowel obstruction. On current study there is suspicion for a 3.3 cm intraluminal mass possible obstructing foreign body at the transition point. Consider surgical exp loration. 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 [facility], , 11/30/2024 10:35 AM
--- NOTE | 2024-11-30 11:59 | P.PN ---
Subjective Progress Note Date: 11/30/24 patient is 34-year-old gentleman with no significant past medical history presents to the ER because of abdominal pain. Patient was having generalized abdominal pain associated with nausea and vomiting. Patient also having constipation. No complaint of any blood in the stools. There was no complaint of fever or chills. because of abdominal pain, patient came to the ER Initial lab work done in the ER showed WBC 16.59, hemoglobin 15.4, platelet count 450, sodium 139, potassium 5.4, BUN 11, creatinine 0.59, glucose 174, total protein 8.9, Urine analysis done showed negative nitrite, negative leukocyte Estrace. X-ray KUB done showed nonspecific bowel gas pattern with mildly dilated upper quadrant small bowel loop with associated air-fluid level. 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 Small bowel obstruction with possible gallstone ileus Patient admitted to internal medicine service 11/28. Patient seen and examined. Labs reviewed showed WBC 16.2, hemoglobin 13.8, sodium 140, potassium 4.1, carbon dioxide 23.2, BUN 8.6, creatinine 0.7, p atient states abdominal pain is slightly improved. Passing small amount of gas 11/29. Patient seen examined. Still having abdominal pain. HIDA scan done, results pending. 11/30. Patient seen examined. Patient had NG tube placed. Small bowel follow- through study showed mid to distal small bowel dilatation. Complaining abdominal pain. Still not passing gas. REVIEW OF SYSTEMS: CONSTITUTIONAL: No fever, no malaise,. CARDIOVASCULAR: No chest pain, no palpitations, no syncope. PULMONARY: No shortness of breath, no cough, GASTROINTESTINAL: As mentioned above NEUROLOGICAL: No headaches, no weakness, PHYSICAL EXAMINATION: GENERAL: The patient is alert and oriented x3, not in any acute distress. Well developed, well nourished. HEENT: Pupils are round and equally reacting to light. EOMI. No scleral icterus. No conjunctival pallor. Normocephalic, atraumatic. No pharyngeal erythema. No thyromegaly. CARDIOVASCULAR: S1 and S2 present. No murmurs, rubs, or gallops. PULMONARY: Chest is clear to auscultation, no wheezing or crackles. ABDOMEN: Soft, nontender, nondistended, normoactive bowel sounds. No palpable organomegaly. MUSCULOSKELETAL: No joint swelling or deformity. EXTREMITIES: No cyanosis, clubbing, or pedal edema. NEUROLOGICAL: Gross neurological examination did not reveal any focal deficits. SKIN: No rashes. Assessment and plan GENERAL: The patient is alert and oriented x3, not in any acute distress. Well developed, well nourished. HEENT: Pupils are round and equally reacting to light. EOMI. No scleral icterus. No conjunctival pallor. Normocephalic, atraumatic. No pharyngeal erythema. No thyromegaly. CARDIOVASCULAR: S1 and S2 present. No murmurs, rubs, or gallops. PULMONARY: Chest is clear to auscultation, no wheezing or crackles. ABDOMEN: Soft, tenderness right upper quadrant, normoactive bowel sounds. No palpable organomegaly. MUSCULOSKELETAL: No joint swelling or deformity. EXTREMITIES: No cyanosis, clubbing, or pedal edema. NEUROLOGICAL: Gross neurological examination did not reveal any focal deficits. SKIN: No rashes. 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 Continue same treatment. Continue with symptomatic treatment. Resume home medication. Monitor labs and vitals. DVT and GI prophylaxis. Further recommendations as per clinical course of the patient Dictation was produced using [employer] dictation software. please excuse any grammatical, word or spelling errors. Objective - Vital Signs Vital signs: Vital Signs Temp 98.0 F 11/30/24 08:00 Pulse 73 11/30/24 08:00 Resp 18 11/30/24 08:00 BP 112/74 11/30/24 08:00 Pulse Ox 94 L 11/30/24 08:00 FiO2 Intake & Output 11/29/24 11/30/24 11/30/24 18:59 06:59 18:59 Output Total 700 Balance -700 Weight 151.5 kg Output: Gastric Drainage 700 Other: # Voids 2 - Labs CBC & Chem 7: 11/30/24 03:04 11/29/24 03:34 Labs: Abnormal Lab Results - Last 24 Hours (Table) 11/30/24 Range/Units 03:04 WBC 13.87 H (4.50-10.00) 10*3/uL RBC 5.75 H (4.40-5.60) 10*6/uL MCH 26.1 L (27.0-32.0) pg MPV 8.9 L (9.5-12.2) fL Immature Gran # 0.05 H (0.00-0.04) 10*3/uL Neutrophils # 9.65 H (1.80-7.70) 10*3/uL
--- NOTE | 2024-11-30 12:42 | P.PN ---
Subjective Progress Note Date: 11/30/24 SURGICAL PROGRESS NOTE CHIEF COMPLAINT: Abdominal pain HISTORY OF PRESENT ILLNESS: Patient continues to not feel well. He does have tenderness right upper quadrant. He had the small bowel follow-through completed reporting mid to distal small bowel obstruction. HIDA reports normal after cholecystectomy. Patient reports that he has never had a cholecystectomy or any abdominal surgery. Patient continues to have left-sided abdominal pain. He reports the pain is slightly improved since admission. He does report nausea he has had small amount of flatus. Denies any bowel movements. Afebrile. WBC 16.2 down to 14.8 hemoglobin 13.9 creatinine 0.7 LFTs are normal total bilirubin 0.9. HIDA scan reports exam is within normal limits after cholecystectomy. Patient has NG tube in place with 300 mL output. PHYSICAL EXAM: VITAL SIGNS: Reviewed. GENERAL: Well-developed in no acute distress. ABDOMEN: Soft. Nondistended. Tenderness palpation right upper quadrant NEUROLOGIC: Alert and oriented. Cranial nerves II through XII grossly intact. ASSESSMENT: 1. Abdominal pain 2. Small bowel obstruction. CT scan reports persistent distal small bowel obstruction. Suspicion for a 3.3 cm intraluminal mass possible obstructing foreign body at the transition point. 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 Mcqueen -Keep patient n.p.o. -Continue antibiotics -Continue IV fluids Physician Lamination Technician note has been reviewed by physician. Signing provider agrees with the documented findings, assessment, and plan of care. Attestation Patient with confirmed gallstone ileus based on repeat CT scan with oral contrast. Plan to keep n.p.o. and surgical intervention planned with robotic evaluation and enterolithotomy versus bowel resection. Andrea Mcqueen DO Objective - Vital Signs Vital signs: Vital Signs Temp 98.0 F 11/30/24 08:00 Pulse 73 11/30/24 08:00 Resp 18 11/30/24 08:00 BP 112/74 11/30/24 08:00 Pulse Ox 94 L 11/30/24 08:00 FiO2 Intake & Output 11/29/24 11/30/24 11/30/24 18:59 06:59 18:59 Output Total 700 Balance -700 Weight 151.5 kg Output: Gastric Drainage 700 Other: # Voids 2 - Labs CBC & Chem 7: 11/30/24 03:04 11/29/24 03:34 Labs: Abnormal Lab Results - Last 24 Hours (Table) 11/30/24 Range/Units 03:04 WBC 13.87 H (4.50-10.00) 10*3/uL RBC 5.75 H (4.40-5.60) 10*6/uL MCH 26.1 L (27.0-32.0) pg MPV 8.9 L (9.5-12.2) fL Immature Gran # 0.05 H (0.00-0.04) 10*3/uL Neutrophils # 9.65 H (1.80-7.70) 10*3/uL
[2024-11-30] MEDS: LACTATED RINGERS 1,000 ML IV SCH (15:02)
[2024-11-30] MEDS: LACTATED RINGERS 1,000 ML IV ONE ×3 (15:02→16:54)
[2024-11-30] MEDS: ONDANSETRON 4 MG/2 ML VIAL IVP ONE (15:03)
[2024-11-30] MEDS: DEXAMETHASONE SOD PHOSPHATE 4 MG/ML 1 ML VIAL IV ONE (15:03)
[2024-11-30] MEDS: HEPARIN SODIUM,PORCINE 5,000 UNIT/ML 1 ML VIAL SQ STA (15:35)
[2024-11-30] MEDS ORDERED: SUCCINYLCHOLINE CHLORIDE 200 MG/10 ML VIAL IV ONE (15:51)
[2024-11-30] MEDS ORDERED: fentaNYL (PF) 50 MCG/ML 2 ML AMP ONE (15:51)
[2024-11-30] MEDS ORDERED: MIDAZOLAM 2 MG/2 ML VIAL ONE (15:51)
[2024-11-30] MEDS ORDERED: LIDOCAINE 1% INJ 10MG/ML (20 ML MDV) ONE (15:51)
[2024-11-30] MEDS ORDERED: GLYCOPYRROLATE 0.2 MG/ML 2 ML VIAL ONE (15:51)
[2024-11-30] MEDS ORDERED: PHENYLEPHRINE 10 MG/ML VIAL ONE (15:51)
[2024-11-30] MEDS ORDERED: NEOSTIGMINE 1 MG/ML 10 ML VIAL ONE (15:51)
[2024-11-30] MEDS ORDERED: PROPOFOL 10 MG/ML 20 ML VIAL IV ONE (15:51)
[2024-11-30] MEDS ORDERED: ROCURONIUM 10 MG/ML (5 ML VIAL) IV ONE (15:51)
[2024-11-30 15:54] LABS: Glucose,Whole Blood 97 mg/dL (70-110)
[2024-11-30] MEDS: BUPIVACAINE (PF) 0.5% 30 ML VIAL SQ ONE ×2 (16:50)
[2024-11-30] MEDS: HYDROmorphone 0.5 MG/0.5 ML SYRINGE IVP PRN (18:39)
[2024-11-30] MEDS: KETOROLAC 15 MG/ML 1 ML VIAL IVP SCH (20:15)
[2024-12-01] MEDS ORDERED: HYDROmorphone 0.5 MG/0.5 ML SYRINGE IVP PRN (07:00)
--- NOTE | 2024-12-01 08:00 | P.OP ---
Date of Procedure: 11/30/24 Preoperative Diagnosis: Gallstone ileus Postoperative Diagnosis: Gallstone ileus Procedure(s) Performed: Robotic Enterolithotomy Removal of gallstone Anesthesia: BARBARA Surgeon: Andrea Mcqueen Pathology: other (Gallstone) Condition: stable Disposition: floor Indications for Procedure: 34-year-old male presented to the emergency department with complaint of abdominal pain. During workup, there was concern for possibility of gallstone ileus. Further workup did confirm this. As bowel obstruction has not resolved, plan is for robotic evaluation with Entero lithotomy versus small bowel resection. Case discussed in depth with patient and patient's family. All questions answered prior to attending the operating suite. Operative Findings: Gallstone causing obstruction at the distal jejunum versus proximal ileum Description of Procedure: Patient brought to the operating suite and placed in supine position on the operating table. Sedation provided by anesthesia and the patient underwent endotracheal intubation. Patient was then prepped and draped in regular sterile fashion. Incision made at Esteban's point and abdomen entered under direct visualization using a Visiport. Pneumoperitoneum achieved. Additional of 8 mm port was placed in the left side of the abdomen and laparoscopic grasper was used to grasp the omentum and lifted superiorly. Evaluation of the small bowel was performed with dilated loops ending with a palpable intraluminal foreign body and distended distal loops. This was the site of obstruction and gallstone ileus. Additional ports were then placed with 8 mm port in the suprapubic region and 8 mm port in the subxiphoid region. The previous 8 mm port was upsized to a 12 mm port and the initial 5 mm port was upsized to an 8 mm port. Robot was then docked. The site of obstruction was grasped and bowel did appear viable. Decision was made to perform enterolithotomy. Incision was made proximal to the obstruction and suction was placed to catch any outpouring of succus. No significant contamination was noted. The gallstone was then milked proximally to the enterotomy and delivered through this enterotomy. Gallstone was then placed in the pelvis and examination was performed of the enterotomy. No evidence of bleeding was noted. Stay suture was placed with anticipation to close transversely. The stay suture was grasped and elevated and the enterotomy was closed transversely in 2 layer fashion with 2 oh V-Loc suture. Appropriate closure was noted. Irrigation was placed in the area and the bowel was compressed without any evidence of air leak. Further irrigation was placed and suctioned. Patient was struggling to maintain tidal volume during the case. Decision was made to end the case at this point and discuss further on takedown of cholecysto enteric fistula in the future. The gallstone was then placed in an Endo Catch bag and removed from the abdomen from the 12 mm trocar site. Robot was undocked. The 12 mm trocar site was closed under direct visualization using 0 Vicryl suture and Lee-Marcela device. Pneumoperitoneum was then released and all ports removed from the abdomen. All incision sites closed with 4-0 Monocryl suture. Sterile dressing applied.
--- NOTE | 2024-12-01 13:11 | P.PN ---
Subjective Progress Note Date: 12/01/24 SURGICAL PROGRESS NOTE CHIEF COMPLAINT: Abdominal pain HISTORY OF PRESENT ILLNESS: Postop day #1 status post robotic Enterolithotomy and removal of gallstone. Patient's pain is controlled. He feels less bloated. He denies any flatus. NG tube with minimal output this a.m. Labs for today pending. Afebrile. PHYSICAL EXAM: VITAL SIGNS: Reviewed. GENERAL: Well-developed in no acute distress. ABDOMEN: Soft. Nondistended. Tenderness at incision sites NEUROLOGIC: Alert and oriented. Cranial nerves II through XII grossly intact. ASSESSMENT: 1. Gallstone ileus PLAN: -Continue NG tube for decompression -Keep patient n.p.o. except for ice chips -Continue pain management -Encourage patient to ambulate - Encouraged incentive spirometer use - Check labs today - Continue IV fluids - GI prophylaxis Protonix and DVT prophylaxis subcu heparin Physician Business Coordinator note has been reviewed by physician. Signing provider agrees with the documented findings, assessment, and plan of care. Attestation Pt resting in bed during rounds. Less distended. States abdominal pain is tolerable. NGT in place. Continue NGT, continue pain control. Continue IS. Continue IVF. Await bowel function. Andrea Mcqueen, DO Objective - Vital Signs Vital signs: Vital Signs Temp 98.1 F 12/01/24 07:07 Pulse 84 12/01/24 07:07 Resp 15 12/01/24 07:07 BP 108/67 12/01/24 07:07 Pulse Ox 97 12/01/24 07:07 FiO2 Intake & Output 11/30/24 12/01/24 12/01/24 18:59 06:59 18:59 Intake Total 2600 Output Total 90 850 Balance 2510 -850 Weight 151.5 kg Intake: IV 2600 Output: Urine 75 850 Estimated Blood Loss 15 - Labs CBC & Chem 7: 12/01/24 13:11 12/01/24 13:11
[2024-12-01 13:26] LABS: Basophils # (A) 0.05 10*3/uL (0.00-0.10); Basophils % (A) 0.4 %; Eosinophils # (A) 0.11 10*3/uL (0.04-0.35); Eosinophils % (A) 0.8 %; HCT 40.2 % (39.6-50.0); Lymphocytes # (A) 3.31 10*3/uL (0.90-5.00); Lymphocytes % (A) 24.4 %; MCH 26.2 pg (27.0-32.0); MCHC 32.3 g/dL (32.0-37.0); Mean Platelet Volume 8.9 fL (9.5-12.2); Monocytes # (A) 0.92 10*3/uL (0.20-1.00); Monocytes % (A) 6.8 %; Neutrophils # (A) 9.12 10*3/uL (1.80-7.70); Neutrophils % (A) 67.2 %; Platelet Count 350 10*3/uL (140-440); RBC 4.96 10*6/uL (4.40-5.60); RDW 12.8 % (11.5-14.5); WBC 13.56 10*3/uL (4.50-10.00)
[2024-12-01 13:40] LABS: African American GFR (CKD) >90 (>60 ml/min/1.73 sqM); Anion Gap 11 mmol/L; Blood Urea Nitrogen 13 mg/dL (9-20); Calcium 8.7 mg/dL (8.4-10.2); Carbon Dioxide 25 mmol/L (22-30); Chloride 104 mmol/L (98-107); Glucose 89 mg/dL (74-99); Non-African American GFR(CKD) >90 (>60 ml/min/1.73 sqM); Potassium 3.6 mmol/L (3.5-5.1); Sodium 140 mmol/L (137-145)
[2024-12-01 15:00] VITALS: BMI 44.0
[2024-12-01] MEDS: HEPARIN SODIUM,PORCINE 5,000 UNIT/ML 1 ML VIAL SQ SCH (20:33)
--- NOTE | 2024-12-01 22:23 | P.CONS ---
History of Present Illness - Reason for Consult Consult date: 12/01/24 Abdominal abscess Requesting physician: Donte Roberto - Chief Complaint Abdominal pain x few days - History of Present Illness Patient is a 34-year-old male with a past medical history difficult for anxiety presenting to the hospital 5 days ago for evaluation of abdominal pain that started the night of presentation to the hospital patient was describing the pain to be sharp almost 8 out of 10 diffuse and stabbing with associated nausea and vomiting did have small bowel movement patient on presentation to the hospital was afebrile and no fever have been called subsequently patient was tachycardic but not hypotensive or hypoxic no need for supplemental oxygen he did have a elevated white count of 16,000 which has come down to 13.56 kidney function was normal electrolytes are normal liver enzymes are normal patient did have abdominal pelvis CT with concern for possible cholecystenteric fistula and features of small bowel obstruction patient did have a HIDA scan normal uptake and possible fistulous tract to just a duodenal was not seen patient was taken to the OR last evening has been diagnosed with a gallstone ileus status post Enterolithotomy and removal of the gallstone patient has been treated with Zosyn infectious disease was consulted today concerning for abdominal abscess Review of Systems Positive point and negatives has been mentioned in the HPI, complete review of systems was performed and all other systems are negative Past Medical History Past Medical History: No Reported History History of Any Multi-Drug Resistant Organisms: None Reported Additional Past Surgical History / Comment(s): TUBES IN EARS Past Anesthesia/Blood Transfusion Reactions: No Reported Reaction Past Psychological History: Anxiety Smoking Status: Never smoker Past Alcohol Use History: None Reported Past Drug Use History: None Reported Medications and Allergies Home Medications Medication Instructions Recorded Confirmed Type No Known Home Medications 11/27/24 11/27/24 History Allergies Allergy/AdvReac Type Severity Reaction Status Date / Time No Known Allergies Allergy Verified 11/27/24 09:21 Physical Exam Vitals: Vital Signs Temp Pulse Pulse Resp BP Pulse Ox 12/01/24 07:07 98.1 F 84 15 108/67 97 12/01/24 00:23 98.8 F 89 16 125/69 97 11/30/24 22:21 97 121/78 95 11/30/24 22:06 88 125/76 94 L 11/30/24 21:51 92 116/76 95 11/30/24 21:36 91 109/72 94 L 11/30/24 21:21 93 115/76 93 L 11/30/24 21:06 93 114/74 94 L 11/30/24 20:51 100 111/72 94 L 11/30/24 20:36 92 107/72 93 L 11/30/24 20:21 87 109/73 93 L 11/30/24 19:55 98.0 F 91 17 117/73 94 L 11/30/24 19:27 93 16 110/62 94 L 11/30/24 19:15 90 18 101/58 94 L 11/30/24 19:00 91 19 107/49 94 L 11/30/24 18:45 93 18 110/52 93 L 11/30/24 18:30 89 15 101/49 97 11/30/24 18:15 88 19 106/52 98 11/30/24 18:07 97.5 F L 94 22 101/49 93 L 11/30/24 15:28 107/49 11/30/24 14:47 97.5 F L 82 18 110/59 96 11/30/24 14:00 97.9 F 74 18 109/76 97 Intake and Output 11/30/24 12/01/24 12/01/24 22:59 06:59 14:59 Intake Total 2600 Output Total 340 600 Balance 2260 -600 Intake: IV 2600 Output: Urine 325 600 Estimated Blood Loss 15 Other: Weight 151.5 kg GENERAL DESCRIPTION: Middle-age male lying in bed, no distress. No tachypnea or accessory muscle of respiration use. HEENT: Shows Pallor , no scleral icterus. Oral mucous membrane is dry. NECK: Trachea central, no thyromegaly. LUNGS: Unlabored breathing. Clear to auscultation anteriorly. No wheeze or crackle. HEART: S1, S2, regular rate and rhythm. No loud murmur ABDOMEN: Soft, mild distention and tenderness EXTREMITIES: No edema of feet. SKIN: No rash, no masses palpable. NEUROLOGICAL: The patient is awake, alert, oriented x3, mood and affect normal. Results CBC & Chem 7: 12/01/24 13:11 12/01/24 13:11 Assessment and Plan (1) Sepsis Current Visit: Yes Status: Acute Code(s): A41.9 - SEPSIS, UNSPECIFIED ORGANISM SNOMED Code(s): 52022597 (2) Gallstone ileus Current Visit: Yes Status: Acute Code(s): K56.3 - GALLSTONE ILEUS SNOMED Code(s): 89496737 (3) Gallstone ileus of small intestine Current Visit: Yes Status: Acute Code(s): K56.3 - GALLSTONE ILEUS SNOMED Code(s): 675752050 Plan: 1patient presented the hospital with sepsis in this patient who did have tachycardia elevated white count meeting criteria for SIRS/sepsis source is abdominal pain this patient was noted to have a small bowel ileus from a gallstone status post Enterolithotomy with the operative report did not mention any evidence of intra-abdominal abscess or any intra-abdominal cultures 2-patient to be empirically treated with Zosyn while waiting for the workup to be completed We will follow on clinical condition and cultures to further adjust medication if needed Thank you for this consultation we will follow the patient along with you Dictation was produced using [employer] dictation software. please excuse any grammatical, word or spelling errors. Time with Patient: Greater than 30
[2024-12-02] MEDS: Phenol 1.4% Sore Throat Spray Bottle MUCOUS MEM PRN (00:59)
[2024-12-02 06:46] LABS: Basophils # (A) 0.06 10*3/uL (0.00-0.10); Basophils % (A) 0.5 %; Eosinophils # (A) 0.16 10*3/uL (0.04-0.35); Eosinophils % (A) 1.3 %; HCT 39.1 % (39.6-50.0); HGB 12.5 g/dL (13.0-17.0); Lymphocytes # (A) 2.73 10*3/uL (0.90-5.00); Lymphocytes % (A) 22.4 %; MCH 26.3 pg (27.0-32.0); MCV 82.1 fL (80.0-97.0); Mean Platelet Volume 9.6 fL (9.5-12.2); Monocytes # (A) 0.88 10*3/uL (0.20-1.00); Monocytes % (A) 7.2 %; Neutrophils # (A) 8.32 10*3/uL (1.80-7.70); Neutrophils % (A) 68.4 %; Platelet Count 334 10*3/uL (140-440); RBC 4.76 10*6/uL (4.40-5.60); RDW 13.1 % (11.5-14.5); WBC 12.18 10*3/uL (4.50-10.00)
[2024-12-02 06:56] LABS: African American GFR (CKD) >90 (>60 ml/min/1.73 sqM); Anion Gap 11 mmol/L; Blood Urea Nitrogen 12 mg/dL (9-20); Calcium 8.4 mg/dL (8.4-10.2); Carbon Dioxide 24 mmol/L (22-30); Chloride 107 mmol/L (98-107); Glucose 69 mg/dL (74-99); Non-African American GFR(CKD) >90 (>60 ml/min/1.73 sqM); Potassium 3.8 mmol/L (3.5-5.1); Sodium 142 mmol/L (137-145)
--- NOTE | 2024-12-02 11:39 | P.PN ---
Subjective Progress Note Date: 12/02/24 SURGICAL PROGRESS NOTE CHIEF COMPLAINT: Abdominal pain HISTORY OF PRESENT ILLNESS: Postop day #2 status post robotic Enterolithotomy and removal of gallstone. Patient is having a good amount of flatus. Reports his abdominal pain is controlled. Denies any nausea. NG tube with minimal output. Afebrile. WBC 12. PHYSICAL EXAM: VITAL SIGNS: Reviewed. GENERAL: Well-developed in no acute distress. ABDOMEN: Soft. Nondistended. Tenderness at incision sites right side NEUROLOGIC: Alert and oriented. Cranial nerves II through XII grossly intact. ASSESSMENT: 1. Gallstone ileus PLAN: -Discontinue NG tube -Advance diet to clear liquids and patient educated to go slowly with liquids -Discontinue Kahn catheter -Add [place] for oral pain medication -Continue pain management -Encourage patient to ambulate -Encouraged incentive spirometer use -Continue antibiotic -GI prophylaxis Protonix and DVT prophylaxis subcu heparin Physician Combination Window Installer note has been reviewed by physician. Signing provider agrees with the documented findings, assessment, and plan of care. Attestation Patient seen and examined at bedside on 12/02/2024. Postop day 2 robotic anterior lithotomy with removal of gallstone. Having flatus. Nasogastric tube to be removed. Kahn catheter removed. Advance to clear liquid diet. Increase activity. Continue pain management. Andrea Mcqueen, Objective - Vital Signs Vital signs: Vital Signs Temp 97.6 F 12/02/24 07:32 Pulse 75 12/02/24 07:32 Resp 15 12/02/24 07:32 BP 129/71 12/02/24 07:32 Pulse Ox 94 L 12/02/24 07:32 FiO2 Intake & Output 12/01/24 12/02/24 12/02/24 18:59 06:59 18:59 Intake Total 200 Output Total 301 951 Balance -301 -951 200 Weight 151.5 kg Intake: Oral 200 Output: Gastric Drainage 450 Urine 300 500 Stool 1 1 Other: Voiding Method Indwelling Catheter # Bowel Movements 1 - Labs CBC & Chem 7: 12/05/24 07:28 12/04/24 03:57 Labs: Abnormal Lab Results - Last 24 Hours (Table) 12/01/24 12/02/24 12/02/24 Range/Units 13:11 05:31 05:31 WBC 13.56 H 12.18 H (4.50-10.00) 10*3/uL Hgb 12.5 L (13.0-17.0) g/dL Hct 39.1 L (39.6-50.0) % MCH 26.2 L 26.3 L (27.0-32.0) pg MPV 8.9 L (9.5-12.2) fL Immature Gran # 0.05 H (0.00-0.04) 10*3/uL Neutrophils # 9.12 H 8.32 H (1.80-7.70) 10*3/uL Glucose 69 L (74-99) mg/dL
--- NOTE | 2024-12-02 14:28 | CDI ---
Documentation Clarification Form Date: 12/02/2024 01:59:58 PM From: Shanda Palmer RN CCDS Phone: [phone] Admit Date: 11/27/2024 03:12:00 AM Patient Name: Willy Funez Visit Number: [id number] Discharge Date: ATTENTION: The Clinical Documentation Specialists (CDI) and [facility] Coding Staff appreciate your assistance in clarifying documentation. Please respond to the clarification below the line at the bottom and electronically sign. The CDI & [facility] Coding staff will review the response and follow-up if needed. Please note: Queries are made part of the Legal Health Record. If you have any questions, please contact the author of this message via ITS. Dr Quintanilla: The patient has Sepsis documented in the ID consult, 12/01. Based on this information and the findings below, is there an additional diagnosis that is clinically appropriate for this patient? History/Risk Factors: 34 year old male presents to the ED with abdominal pain diffuse and stabbing with associated postprandial nausea/vomiting. No reported medical history. 11/27. Clinical Indicators: 11/26 Wbc 16.59 11/26, VVS: B/P 116/76 HR 77, RR 17, SpO2 98% ra 12/01 Wbc 13.56 12/01 VSS: B/P 110/62, HR 91, RR 17, SpO2 94% ra 11/27, CT ABD: Appears to be a small gallbladder with an abnormal connection to the adjacent duodenum. 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 Small bowel obstruction. 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 Treatment: ID Consult: 12/01: patient presented the hospital with sepsis in this patient who did have tachycardia elevated white count meeting criteria for SIRS/sepsis source is abdominal pain this patient was noted to have a small bowel ileus from a gallstone status post Enterolithotomy with the operative report did not mention any evidence of intra-abdominal abscess or any intra-abdominal cultures Medications: 11/27 Tylenol IVPB x 1, Antibiotics: 11/27 Rocephin IV x 1; 11/27 Metronidazole IVPB x 1; 11/27 Zosyn IVPB Q8H IV Bolus: 11/26 0.9NS 1L IVF x 1 Is there an additional diagnosis that is clinically appropriate for this patient? [ ] Sepsis, present on admission [ ] Sepsis, developed during stay, not present on admission [ ] Sepsis ruled out [ ] Septic Shock [ ] No additional diagnosis/not clinically significant [ ] Other, please specify [ ] Unable to determine SIRS Criteria: 2 or more of the following may indicate SIRS Temperature < 96.8F (36C) or > 101.0F (38.3C) Heart Rate > 90 bpm Respiratory Rate > 20 breaths/min or PaCO2 < 32 mmHg White Blood Cell Count > 12,000 or < 4,000 cells/mm3 or > 10% bands (Template Last Reviewed: July 2022) MTDD
--- NOTE | 2024-12-02 14:30 | P.PN ---
Subjective Progress Note Date: 12/01/24 patient is 34-year-old gentleman with no significant past medical history presents to the ER because of abdominal pain. Patient was having generalized abdominal pain associated with nausea and vomiting. Patient also having constipation. No complaint of any blood in the stools. There was no complaint of fever or chills. because of abdominal pain, patient came to the ER Initial lab work done in the ER showed WBC 16.59, hemoglobin 15.4, platelet count 450, sodium 139, potassium 5.4, BUN 11, creatinine 0.59, glucose 174, total protein 8.9, Urine analysis done showed negative nitrite, negative leukocyte Estrace. X-ray KUB done showed nonspecific bowel gas pattern with mildly dilated upper quadrant small bowel loop with associated air-fluid level. 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 Small bowel obstruction with possible gallstone ileus Patient admitted to internal medicine service 11/28. Patient seen and examined. Labs reviewed showed WBC 16.2, hemoglobin 13.8, sodium 140, potassium 4.1, carbon dioxide 23.2, BUN 8.6, creatinine 0.7, p atient states abdominal pain is slightly improved. Passing small amount of gas 11/29. Patient seen examined. Still having abdominal pain. HIDA scan done, results pending. 11/30. Patient seen examined. Patient had NG tube placed. Small bowel follow- through study showed mid to distal small bowel dilatation. Complaining abdominal pain. Still not passing gas. 12/01. Patient seen and examined. Patient underwent laparoscopic bowel resection. REVIEW OF SYSTEMS: CONSTITUTIONAL: No fever, no malaise,. CARDIOVASCULAR: No chest pain, no palpitations, no syncope. PULMONARY: No shortness of breath, no cough, GASTROINTESTINAL: As mentioned above NEUROLOGICAL: No headaches, no weakness, PHYSICAL EXAMINATION: GENERAL: The patient is alert and oriented x3, not in any acute distress. Well developed, well nourished. HEENT: Pupils are round and equally reacting to light. EOMI. No scleral icterus. No conjunctival pallor. Normocephalic, atraumatic. No pharyngeal erythema. No thyromegaly. CARDIOVASCULAR: S1 and S2 present. No murmurs, rubs, or gallops. PULMONARY: Chest is clear to auscultation, no wheezing or crackles. ABDOMEN: Soft, nontender, nondistended, normoactive bowel sounds. No palpable organomegaly. MUSCULOSKELETAL: No joint swelling or deformity. EXTREMITIES: No cyanosis, clubbing, or pedal edema. NEUROLOGICAL: Gross neurological examination did not reveal any focal deficits. SKIN: No rashes. Assessment and plan GENERAL: The patient is alert and oriented x3, not in any acute distress. Well developed, well nourished. HEENT: Pupils are round and equally reacting to light. EOMI. No scleral icterus. No conjunctival pallor. Normocephalic, atraumatic. No pharyngeal erythema. No thyromegaly. CARDIOVASCULAR: S1 and S2 present. No murmurs, rubs, or gallops. PULMONARY: Chest is clear to auscultation, no wheezing or crackles. ABDOMEN: Soft, tenderness right upper quadrant, normoactive bowel sounds. No palpable organomegaly. MUSCULOSKELETAL: No joint swelling or deformity. EXTREMITIES: No cyanosis, clubbing, or pedal edema. NEUROLOGICAL: Gross neurological examination did not reveal any focal deficits. SKIN: No rashes. 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 Continue same treatment. Continue with symptomatic treatment. Resume home medication. Monitor labs and vitals. DVT and GI prophylaxis. Further recommendations as per clinical course of the patient Dictation was produced using [employer] dictation software. please excuse any grammatical, word or spelling errors. Objective - Vital Signs Vital signs: Vital Signs Temp 98.1 F 12/01/24 07:07 Pulse 84 12/01/24 07:07 Resp 15 12/01/24 07:07 BP 108/67 12/01/24 07:07 Pulse Ox 97 12/01/24 07:07 FiO2 Intake & Output 11/30/24 12/01/24 12/01/24 18:59 06:59 18:59 Intake Total 2600 Output Total 90 850 Balance 2510 -850 Weight 151.5 kg Intake: IV 2600 Output: Urine 75 850 Estimated Blood Loss 15 - Labs CBC & Chem 7: 11/30/24 03:04 11/29/24 03:34
--- NOTE | 2024-12-02 14:32 | P.PN ---
Subjective Progress Note Date: 12/02/24 patient is 34-year-old gentleman with no significant past medical history presents to the ER because of abdominal pain. Patient was having generalized abdominal pain associated with nausea and vomiting. Patient also having constipation. No complaint of any blood in the stools. There was no complaint of fever or chills. because of abdominal pain, patient came to the ER Initial lab work done in the ER showed WBC 16.59, hemoglobin 15.4, platelet count 450, sodium 139, potassium 5.4, BUN 11, creatinine 0.59, glucose 174, total protein 8.9, Urine analysis done showed negative nitrite, negative leukocyte Estrace. X-ray KUB done showed nonspecific bowel gas pattern with mildly dilated upper quadrant small bowel loop with associated air-fluid level. 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 Small bowel obstruction with possible gallstone ileus Patient admitted to internal medicine service 11/28. Patient seen and examined. Labs reviewed showed WBC 16.2, hemoglobin 13.8, sodium 140, potassium 4.1, carbon dioxide 23.2, BUN 8.6, creatinine 0.7, p atient states abdominal pain is slightly improved. Passing small amount of gas 11/29. Patient seen examined. Still having abdominal pain. HIDA scan done, results pending. 11/30. Patient seen examined. Patient had NG tube placed. Small bowel follow- through study showed mid to distal small bowel dilatation. Complaining abdominal pain. Still not passing gas. 12/01. Patient seen and examined. status post robotic Enterolithotomy and removal of gallstone. 12/02. Patient seen examined. Currently clear liquid diet. REVIEW OF SYSTEMS: CONSTITUTIONAL: No fever, no malaise,. CARDIOVASCULAR: No chest pain, no palpitations, no syncope. PULMONARY: No shortness of breath, no cough, GASTROINTESTINAL: As mentioned above NEUROLOGICAL: No headaches, no weakness, PHYSICAL EXAMINATION: GENERAL: The patient is alert and oriented x3, not in any acute distress. Well developed, well nourished. HEENT: Pupils are round and equally reacting to light. EOMI. No scleral icterus. No conjunctival pallor. Normocephalic, atraumatic. No pharyngeal erythema. No thyromegaly. CARDIOVASCULAR: S1 and S2 present. No murmurs, rubs, or gallops. PULMONARY: Chest is clear to auscultation, no wheezing or crackles. ABDOMEN: Soft, nontender, nondistended, laparoscopic surgical incision seen MUSCULOSKELETAL: No joint swelling or deformity. EXTREMITIES: No cyanosis, clubbing, or pedal edema. NEUROLOGICAL: Gross neurological examination did not reveal any focal deficits. SKIN: No rashes. Assessment and plan GENERAL: The patient is alert and oriented x3, not in any acute distress. Well developed, well nourished. HEENT: Pupils are round and equally reacting to light. EOMI. No scleral icterus. No conjunctival pallor. Normocephalic, atraumatic. No pharyngeal erythema. No thyromegaly. CARDIOVASCULAR: S1 and S2 present. No murmurs, rubs, or gallops. PULMONARY: Chest is clear to auscultation, no wheezing or crackles. ABDOMEN: Soft, tenderness right upper quadrant, normoactive bowel sounds. No p alpable organomegaly. MUSCULOSKELETAL: No joint swelling or deformity. EXTREMITIES: No cyanosis, clubbing, or pedal edema. NEUROLOGICAL: Gross neurological examination did not reveal any focal deficits. SKIN: No rashes. 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 Encourage ambulation Encourage use of I-S Continue antiemetics Continue IV Zosyn Continue pain management per surgery Continue DVT prophylaxis per surgery General Surgery following Labs and medication were reviewed.. Continue same treatment. Continue with symptomatic treatment. Resume home medication. Monitor labs and vitals. DVT and GI prophylaxis. Further recommendations as per clinical course of the patient Dictation was produced using [employer] dictation software. please excuse any grammatical, word or spelling errors. Objective - Vital Signs Vital signs: Vital Signs Temp 98.9 F 12/02/24 14:00 Pulse 90 12/02/24 14:00 Resp 16 12/02/24 14:00 BP 147/67 12/02/24 14:00 Pulse Ox 93 L 12/02/24 14:00 FiO2 Intake & Output 12/01/24 12/02/24 12/02/24 18:59 06:59 18:59 Intake Total 200 Output Total 301 951 Balance -301 -951 200 Weight 151.5 kg Intake: Oral 200 Output: Gastric Drainage 450 Urine 300 500 Stool 1 1 Other: Voiding Method Indwelling Catheter # Bowel Movements 1 - Labs CBC & Chem 7: 12/02/24 05:31 12/02/24 05:31 Labs: Abnormal Lab Results - Last 24 Hours (Table) 12/02/24 12/02/24 Range/Units 05:31 05:31 WBC 12.18 H (4.50-10.00) 10*3/uL Hgb 12.5 L (13.0-17.0) g/dL Hct 39.1 L (39.6-50.0) % MCH 26.3 L (27.0-32.0) pg Neutrophils # 8.32 H (1.80-7.70) 10*3/uL Glucose 69 L (74-99) mg/dL
--- NOTE | 2024-12-02 14:49 | P.PN ---
Subjective Progress Note Date: 12/02/24 Principal diagnosis: Reason for follow-up is leukocytosis/gallstone ileus Patient is a 34-year-old male with a past medical history difficult for anxiety presenting to the hospital 5 days ago for evaluation of abdominal pain, patient be diagnosed with a gallstone ileus this patient was status post robotic enterolithotomy. On today's evaluation that is 12/01/2024, patient has been afebrile, patient is breathing comfortably and is currently on room air, patient denies having any chest pain and cough, patient denies nausea vomiting and abdominal pain has slightly decreased in intensity. Patient white count is down to 12.18 creatinine 0.70 Objective - Vital Signs Vital signs: Vital Signs Temp 98.9 F 12/02/24 14:00 Pulse 90 12/02/24 14:00 Resp 16 12/02/24 14:00 BP 147/67 12/02/24 14:00 Pulse Ox 93 L 12/02/24 14:00 FiO2 Intake & Output 12/01/24 12/02/24 12/02/24 18:59 06:59 18:59 Intake Total 200 Output Total 301 951 Balance -301 -951 200 Weight 151.5 kg Intake: Oral 200 Output: Gastric Drainage 450 Urine 300 500 Stool 1 1 Other: Voiding Method Indwelling Catheter # Bowel Movements 1 - Exam GENERAL DESCRIPTION: Middle-age man up in the room in no distress RESPIRATORY SYSTEM: Unlabored breathing , decreased breath sounds at bases HEART: S1 S2 regular rate and rhythm , ABDOMEN: Soft , no tenderness EXTREMITIES: No edema feet - Labs CBC & Chem 7: 12/02/24 05:31 12/02/24 05:31 Labs: Abnormal Lab Results - Last 24 Hours (Table) 12/02/24 12/02/24 Range/Units 05:31 05:31 WBC 12.18 H (4.50-10.00) 10*3/uL Hgb 12.5 L (13.0-17.0) g/dL Hct 39.1 L (39.6-50.0) % MCH 26.3 L (27.0-32.0) pg Neutrophils # 8.32 H (1.80-7.70) 10*3/uL Glucose 69 L (74-99) mg/dL Assessment and Plan (1) Sepsis Current Visit: Yes Status: Acute Code(s): A41.9 - SEPSIS, UNSPECIFIED ORGANISM SNOMED Code(s): 73375466 (2) Gallstone ileus Current Visit: Yes Status: Acute Code(s): K56.3 - GALLSTONE ILEUS SNOMED Code(s): 10984715 (3) Gallstone ileus of small intestine Current Visit: Yes Status: Acute Code(s): K56.3 - GALLSTONE ILEUS SNOMED Code(s): 462182713 Plan: 1patient presented the hospital with sepsis in this patient who did have tachycardia elevated white count meeting criteria for SIRS/sepsis source is abdominal pain this patient was noted to have a small bowel ileus from a gallstone status post Enterolithotomy with the operative report did not mention any evidence of intra-abdominal abscess or any intra-abdominal cultures 2-patient is afebrile white count is trending down we will continue with Zosyn while inpatient and transition to oral antibiotic on discharge Dictation was produced using [employer] dictation software. please excuse any gramm atical, word or spelling errors. Time with Patient: Less than 30
[2024-12-02] MEDS: HYDROcodone/APAP 5-325MG 1 EACH TAB PO PRN (16:03)
--- NOTE | 2024-12-03 12:43 | P.PN ---
Subjective Progress Note Date: 12/03/24 patient is 34-year-old gentleman with no significant past medical history presents to the ER because of abdominal pain. Patient was having generalized abdominal pain associated with nausea and vomiting. Patient also having constipation. No complaint of any blood in the stools. There was no complaint of fever or chills. because of abdominal pain, patient came to the ER Initial lab work done in the ER showed WBC 16.59, hemoglobin 15.4, platelet count 450, sodium 139, potassium 5.4, BUN 11, creatinine 0.59, glucose 174, total protein 8.9, Urine analysis done showed negative nitrite, negative leukocyte Estrace. X-ray KUB done showed nonspecific bowel gas pattern with mildly dilated upper quadrant small bowel loop with associated air-fluid level. 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 Small bowel obstruction with possible gallstone ileus Patient admitted to internal medicine service 11/28. Patient seen and examined. Labs reviewed showed WBC 16.2, hemoglobin 13.8, sodium 140, potassium 4.1, carbon dioxide 23.2, BUN 8.6, creatinine 0.7, p atient states abdominal pain is slightly improved. Passing small amount of gas 11/29. Patient seen examined. Still having abdominal pain. HIDA scan done, results pending. 11/30. Patient seen examined. Patient had NG tube placed. Small bowel follow- through study showed mid to distal small bowel dilatation. Complaining abdominal pain. Still not passing gas. 12/01. Patient seen and examined. status post robotic Enterolithotomy and removal of gallstone. 12/02. Patient seen examined. Currently clear liquid diet. 12/03. Patient seen examined. States he feels better. Passing gas. Patient had a bowel movement as well REVIEW OF SYSTEMS: CONSTITUTIONAL: No fever, no malaise,. CARDIOVASCULAR: No chest pain, no palpitations, no syncope. PULMONARY: No shortness of breath, no cough, GASTROINTESTINAL: As mentioned above NEUROLOGICAL: No headaches, no weakness, PHYSICAL EXAMINATION: GENERAL: The patient is alert and oriented x3, not in any acute distress. Well developed, well nourished. HEENT: Pupils are round and equally reacting to light. EOMI. No scleral icterus. No conjunctival pallor. Normocephalic, atraumatic. No pharyngeal erythema. No thyromegaly. CARDIOVASCULAR: S1 and S2 present. No murmurs, rubs, or gallops. PULMONARY: Chest is clear to auscultation, no wheezing or crackles. ABDOMEN: Soft, nontender, nondistended, laparoscopic surgical incision seen MUSCULOSKELETAL: No joint swelling or deformity. EXTREMITIES: No cyanosis, clubbing, or pedal edema. NEUROLOGICAL: Gross neurological examination did not reveal any focal deficits. SKIN: No rashes. Assessment and plan GENERAL: The patient is alert and oriented x3, not in any acute distress. Well developed, well nourished. HEENT: Pupils are round and equally reacting to light. EOMI. No scleral icterus. No conjunctival pallor. Normocephalic, atraumatic. No pharyngeal erythema. No thyromegaly. CARDIOVASCULAR: S1 and S2 present. No murmurs, rubs, or gallops. PULMONARY: Chest is clear to auscultation, no wheezing or crackles. ABDOMEN: Soft, tenderness right upper quadrant, normoactive bowel sounds. No palpable organomegaly. MUSCULOSKELETAL: No joint swelling or deformity. EXTREMITIES: No cyanosis, clubbing, or pedal edema. NEUROLOGICAL: Gross neurological examination did not reveal any focal deficits. SKIN: No rashes. 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 Encourage ambulation Encourage use of I-S Continue antiemetics Continue IV Zosyn Continue on clear liquid diet, advance diet per surgery Continue pain management per surgery Continue DVT prophylaxis per surgery ID following, recommendations noted from 12/02 General Surgery following Labs and medication were reviewed.. Continue same treatment. Continue with symptomatic treatment. Resume home medication. Monitor labs and vitals. DVT and GI prophylaxis. Further recommendations as per clinical course of the patient Dictation was produced using [employer] dictation software. please excuse any grammatical, word or spelling errors. Objective - Vital Signs Vital signs: Vital Signs Temp 98 F 12/03/24 07:55 Pulse 77 12/03/24 07:55 Resp 17 12/03/24 07:55 BP 116/78 12/03/24 07:55 Pulse Ox 95 12/03/24 07:55 FiO2 Intake & Output 12/02/24 12/03/24 12/03/24 18:59 06:59 18:59 Intake Total 200 Balance 200 Weight 151.5 kg Intake: Oral 200 Other: Voiding Method Indwelling Catheter Toilet # Voids 4 2 - Labs CBC & Chem 7: 12/02/24 05:31 12/02/24 05:31
--- NOTE | 2024-12-03 12:56 | P.PN ---
Subjective Progress Note Date: 12/03/24 SURGICAL PROGRESS NOTE CHIEF COMPLAINT: Abdominal pain HISTORY OF PRESENT ILLNESS: Postop day #3 status post robotic Enterolithotomy and removal of gallstone. Patient had NG tube and Kahn catheter removed yesterday. He is tolerating clear liquids with no nausea or vomiting. He continues to have flatus. Pain is controlled. Denies any difficulty urinating. Afebrile. WBC is down from 13-12. PHYSICAL EXAM: VITAL SIGNS: Reviewed. GENERAL: Well-developed in no acute distress. ABDOMEN: Soft. Nondistended. Tenderness at incision sites right side NEUROLOGIC: Alert and oriented. Cranial nerves II through XII grossly intact. ASSESSMENT: 1. Gallstone ileus PLAN: -Continue clear liquid diet -Continue pain management -Continue antibiotics per ID service -Encourage patient to increase activity level -Encourage patient to use incentive spirometer -GI prophylaxis Protonix and DVT prophylaxis subcu heparin Physician [employer] Worker note has been reviewed by physician. Signing provider agrees with the documented findings, assessment, and plan of care. Objective - Vital Signs Vital signs: Vital Signs Temp 98 F 12/03/24 07:55 Pulse 77 12/03/24 07:55 Resp 17 12/03/24 07:55 BP 116/78 12/03/24 07:55 Pulse Ox 95 12/03/24 07:55 FiO2 Intake & Output 12/02/24 12/03/24 12/03/24 18:59 06:59 18:59 Intake Total 200 Balance 200 Weight 151.5 kg Intake: Oral 200 Other: Voiding Method Indwelling Catheter Toilet # Voids 4 2 - Labs CBC & Chem 7: 12/02/24 05:31 12/02/24 05:31 Assessment and Plan Assessment: advance to full liquid diet Time with Patient: Less than 30
--- NOTE | 2024-12-03 14:56 | P.PN ---
Subjective Progress Note Date: 12/03/24 Principal diagnosis: Reason for follow-up is leukocytosis/gallstone ileus Patient is a 34-year-old male with a past medical history difficult for anxiety presenting to the hospital 5 days ago for evaluation of abdominal pain, patient be diagnosed with a gallstone ileus this patient was status post robotic enterolithotomy. On today's evaluation that is 12/03/2024,the patient denies any fever or any chills, patient is breathing comfortably on room air, the patient denies chest pain shortness of breath and no significant cough, patient abdominal pain has decreased intensity no nausea vomiting or diarrhea. Patient white count is down to 12.18, creatinine 0.70 Objective - Vital Signs Vital signs: Vital Signs Temp 98.4 F 12/03/24 13:22 Pulse 69 12/03/24 13:22 Resp 17 12/03/24 13:22 BP 111/74 12/03/24 13:22 Pulse Ox 96 12/03/24 13:22 FiO2 Intake & Output 12/02/24 12/03/24 12/03/24 18:59 06:59 18:59 Intake Total 200 Balance 200 Weight 151.5 kg Intake: Oral 200 Other: Voiding Method Indwelling Catheter Toilet # Voids 4 2 - Exam GENERAL DESCRIPTION: Middle-age man up in the room in no distress RESPIRATORY SYSTEM: Unlabored breathing , decreased breath sounds at bases HEART: S1 S2 regular rate and rhythm , ABDOMEN: Soft , no tenderness EXTREMITIES: No edema feet - Labs CBC & Chem 7: 12/02/24 05:31 12/02/24 05:31 Assessment and Plan (1) Sepsis Current Visit: Yes Status: Acute Code(s): A41.9 - SEPSIS, UNSPECIFIED ORGANISM SNOMED Code(s): 70742628 (2) Gallstone ileus Current Visit: Yes Status: Acute Code(s): K56.3 - GALLSTONE ILEUS SNOMED Code(s): 30300504 (3) Gallstone ileus of small intestine Current Visit: Yes Status: Acute Code(s): K56.3 - GALLSTONE ILEUS SNOMED C ode(s): 666679629 Plan: 1patient presented the hospital with sepsis in this patient who did have tachycardia elevated white count meeting criteria for SIRS/sepsis source is abdominal pain this patient was noted to have a small bowel ileus from a gallstone status post Enterolithotomy with the operative report did not mention any evidence of intra-abdominal abscess or any intra-abdominal cultures 2-patient is afebrile white count is trending down 3patient will be treated with Zosyn while inpatient and transition to oral antibiotic on discharge Dictation was produced using [employer] dictation software. please excuse any grammatical, word or spelling errors. Time with Patient: Less than 30
--- NOTE | 2024-12-04 08:32 | P.PN ---
Progress Note - Text Progress Note Date: 12/04/24 CHIEF COMPLAINT: Abdominal pain HISTORY OF PRESENT ILLNESS: Postop day #4 status post robotic Enterolithotomy and removal of gallstone. Tolerating Full Liquid Diet. Passing gas and having bowel movements. PHYSICAL EXAM: VITAL SIGNS: Reviewed. GENERAL: Well-developed in no acute distress. ABDOMEN: Soft. Nondistended. Tenderness at incision sites right side NEUROLOGIC: Alert and oriented. Cranial nerves II through XII grossly intact. ASSESSMENT: 1. Gallstone ileus PLAN: -Advanced to Regular Diet -Continue pain management -Continue antibiotics per ID service -Encourage patient to increase activity level -Encourage patient to use incentive spirometer -GI prophylaxis Protonix and DVT prophylaxis subcu heparin [facility] [phone]
[2024-12-04 09:15] LABS: Basophils # (A) 0.04 X 10*3/uL (0.00-0.10); Basophils % (A) 0.5 %; Eosinophils # (A) 0.39 X 10*3/uL (0.04-0.35); Eosinophils % (A) 4.5 %; HCT 38.4 % (39.6-50.0); HGB 12.2 g/dL (13.0-17.0); Lymphocytes # (A) 3.03 X 10*3/uL (0.90-5.00); Lymphocytes % (A) 34.9 %; MCH 25.7 pg (27.0-32.0); MCHC 31.8 g/dL (32.0-37.0); MCV 80.8 FL (80.0-97.0); Mean Platelet Volume 9.9 FL (9.5-12.2); Monocytes # (A) 0.62 X 10*3/uL (0.20-1.00); Monocytes % (A) 7.1 %; NRBC Per 100 WBC 0 X 10*3/uL (0.00-0.01); Neutrophils # (A) 4.59 X 10*3/uL (1.80-7.70); Neutrophils % (A) 52.8 %; Platelet Count 345 X 10*3/uL (140-440); RBC 4.75 X 10*6/uL (4.40-5.60); RDW 12.8 % (11.5-14.5); WBC 8.69 X 10*3/uL (4.50-10.00)
[2024-12-04 09:57] LABS: ALT 42 U/L (10-49); AST 26 U/L (14-35); Albumin 3.4 g/dL (3.8-4.9); Albumin/Globulin Ratio 1.36 Ratio (1.60-3.17); Alkaline Phosphatase 91 U/L (41-126); BUN/Creat Ratio <5.83 Ratio (12.00-20.00); Blood Urea Nitrogen <3.5 mg/dL (9.0-27.0); Calcium 8.5 mg/dL (8.7-10.3); Carbon Dioxide 25.2 mmol/L (21.6-31.8); Chloride 104 mmol/L (96-109); Globulin 2.5 g/dL (1.6-3.3); Glucose 95 mg/dL (70-110); Potassium 3.4 mmol/L (3.5-5.5); Sodium 142 mmol/L (135-145); Total Bilirubin 0.5 mg/dL (0.3-1.2); Total Protein 5.9 g/dL (6.2-8.2)
--- NOTE | 2024-12-04 14:22 | P.PN ---
Subjective Progress Note Date: 12/04/24 patient is 34-year-old gentleman with no significant past medical history presents to the ER because of abdominal pain. Patient was having generalized abdominal pain associated with nausea and vomiting. Patient also having constipation. No complaint of any blood in the stools. There was no complaint of fever or chills. because of abdominal pain, patient came to the ER Initial lab work done in the ER showed WBC 16.59, hemoglobin 15.4, platelet count 450, sodium 139, potassium 5.4, BUN 11, creatinine 0.59, glucose 174, total protein 8.9, Urine analysis done showed negative nitrite, negative leukocyte Estrace. X-ray KUB done showed nonspecific bowel gas pattern with mildly dilated upper quadrant small bowel loop with associated air-fluid level. 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 Small bowel obstruction with possible gallstone ileus Patient admitted to internal medicine service 11/28. Patient seen and examined. Labs reviewed showed WBC 16.2, hemoglobin 13.8, sodium 140, potassium 4.1, carbon dioxide 23.2, BUN 8.6, creatinine 0.7, p atient states abdominal pain is slightly improved. Passing small amount of gas 11/29. Patient seen examined. Still having abdominal pain. HIDA scan done, results pending. 11/30. Patient seen examined. Patient had NG tube placed. Small bowel follow- through study showed mid to distal small bowel dilatation. Complaining abdominal pain. Still not passing gas. 12/01. Patient seen and examined. status post robotic Enterolithotomy and removal of gallstone. 12/02. Patient seen examined. Currently clear liquid diet. 12/03. Patient seen examined. States he feels better. Passing gas. Patient had a bowel movement as well 12/04. Patient seen examined. Laying comfortably in the bed. Currently on regular diet which was advanced this morning. Passing gas and had a bowel movement. REVIEW OF SYSTEMS: CONSTITUTIONAL: No fever, no malaise,. CARDIOVASCULAR: No chest pain, no palpitations, no syncope. PULMONARY: No shortness of breath, no cough, GASTROINTESTINAL: As mentioned above NEUROLOGICAL: No headaches, no weakness, PHYSICAL EXAMINATION: GENERAL: The patient is alert and oriented x3, not in any acute distress. Well developed, well nourished. HEENT: Pupils are round and equally reacting to light. EOMI. No scleral icterus. No conjunctival pallor. Normocephalic, atraumatic. No pharyngeal erythema. No thyromegaly. CARDIOVASCULAR: S1 and S2 present. No murmurs, rubs, or gallops. PULMONARY: Chest is clear to auscultation, no wheezing or crackles. ABDOMEN: Soft, nontender, nondistended, laparoscopic surgical incision seen MUSCULOSKELETAL: No joint swelling or deformity. EXTREMITIES: No cyanosis, clubbing, or pedal edema. NEUROLOGICAL: Gross neurological examination did not reveal any focal deficits. SKIN: No rashes. Assessment and plan GENERAL: The patient is alert and oriented x3, not in any acute distress. Well developed, well nourished. HEENT: Pupils are round and equally reacting to light. EOMI. No scleral icterus. No conjunctival pallor. Normocephalic, atraumatic. No pharyngeal erythema. No thyromegaly. CARDIOVASCULAR: S1 and S2 present. No murmurs, rubs, or gallops. PULMONARY: Chest is clear to auscultation, no wheezing or crackles. ABDOMEN: Soft, tenderness right upper quadrant, normoactive bowel sounds. No palpable organomegaly. MUSCULOSKELETAL: No joint swelling or deformity. EXTREMITIES: No cyanosis, clubbing, or pedal edema. NEUROLOGICAL: Gross neurological examination did not reveal any focal deficits. SKIN: No rashes. 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 Encourage ambulation Encourage use of I-S Continue antiemetics Continue IV Zosyn Currently regular diet Continue pain management per surgery Continue DVT prophylaxis per surgery ID following, recommendations noted from 12/03 General Surgery following Labs and medication were reviewed.. Continue same treatment. Continue with symptomatic treatment. Resume home medication. Monitor labs and vitals. DVT and GI prophylaxis. Further recommendations as per clinical course of the patient Dictation was produced using [employer] dictation software. please excuse any grammatical, word or spelling errors. Objective - Vital Signs Vital signs: Vital Signs Temp 98.4 F 12/04/24 13:46 Pulse 100 12/04/24 13:46 Resp 15 12/04/24 13:46 BP 139/73 12/04/24 13:46 Pulse Ox 99 12/04/24 13:46 FiO2 Intake & Output 12/03/24 12/04/24 12/04/24 18:59 06:59 18:59 Intake Total 250 Output Total 1 Balance 249 Weight 151.5 kg Intake: Oral 250 Output: Stool 1 Other: Voiding Method Toilet # Voids 5 3 - Labs CBC & Chem 7: 12/04/24 03:57 12/04/24 03:57 Labs: Abnormal Lab Results - Last 24 Hours (Table) 12/04/24 12/04/24 Range/Units 03:57 03:57 Hgb 12.2 L (13.0-17.0) g/dL Hct 38.4 L (39.6-50.0) % MCH 25.7 L (27.0-32.0) pg MCHC 31.8 L (32.0-37.0) g/dL Eosinophils # 0.39 H (0.04-0.35) X 10*3/uL Potassium 3.4 L (3.5-5.5) mmol/L Anion Gap 12.80 H (4.00-12.00) mmol/L BUN <3.5 L (9.0-27.0) mg/dL BUN/Creatinine Ratio <5.83 L (12.00-20.00) Ratio Calcium 8.5 L (8.7-10.3) mg/dL Total Protein 5.9 L (6.2-8.2) g/dL Albumin 3.4 L (3.8-4.9) g/dL Albumin/Globulin Ratio 1.36 L (1.60-3.17) Ratio
--- NOTE | 2024-12-04 16:17 | P.PN ---
Subjective Progress Note Date: 12/04/24 Principal diagnosis: Reason for follow-up is leukocytosis/gallstone ileus Patient is a 34-year-old male with a past medical history difficult for anxiety presenting to the hospital 5 days ago for evaluation of abdominal pain, patient be diagnosed with a gallstone ileus this patient was status post robotic enterolithotomy. On today's evaluation that is 12/04/2024,the patient remains to be afebrile, patient is on room air not requiring supplemental oxygen and denies any shortn ess of breath no chest pain or cough.Patient denies having any nausea or vomiting, abdominal pain is currently controlled no diarrhea. Patient with normalized to 8.69, creatinine 0.6 Objective - Vital Signs Vital signs: Vital Signs Temp 98.4 F 12/04/24 13:46 Pulse 100 12/04/24 13:46 Resp 15 12/04/24 13:46 BP 139/73 12/04/24 13:46 Pulse Ox 99 12/04/24 13:46 FiO2 Intake & Output 12/03/24 12/04/24 12/04/24 18:59 06:59 18:59 Intake Total 250 Output Total 1 Balance 249 Weight 151.5 kg Intake: Oral 250 Output: Stool 1 Other: Voiding Method Toilet # Voids 5 3 - Exam GENERAL DESCRIPTION: Middle-age man up in the room in no distress RESPIRATORY SYSTEM: Unlabored breathing , decreased breath sounds at bases HEART: S1 S2 regular rate and rhythm , ABDOMEN: Soft , no tenderness EXTREMITIES: No edema feet - Labs CBC & Chem 7: 12/04/24 03:57 12/04/24 03:57 Labs: Abnormal Lab Results - Last 24 Hours (Table) 12/04/24 12/04/24 Range/Units 03:57 03:57 Hgb 12.2 L (13.0-17.0) g/dL Hct 38.4 L (39.6-50.0) % MCH 25.7 L (27.0-32.0) pg MCHC 31.8 L (32.0-37.0) g/dL Eosinophils # 0.39 H (0.04-0.35) X 10*3/uL Potassium 3.4 L (3.5-5.5) mmol/L Anion Gap 12.80 H (4.00-12.00) mmol/L BUN <3.5 L (9.0-27.0) mg/dL BUN/Creatinine Ratio <5.83 L (12.00-20.00) Ratio Calcium 8.5 L (8.7-10.3) mg/dL Total Protein 5.9 L (6.2-8.2) g/dL Albumin 3.4 L (3.8-4.9) g/dL Albumin/Globulin Ratio 1.36 L (1.60-3.17) Ratio Assessment and Plan (1) Sepsis Current Visit: Yes Status: Acute Code(s): A41.9 - SEPSIS, UNSPECIFIED ORGANISM SNOMED Code(s): 07988934 (2) Gallstone ileus Current Visit: Yes Status: Acute Code(s): K56.3 - GALLSTONE ILEUS SNOMED Code(s): 82109684 (3) Gallstone ileus of small intestine Current Visit: Yes Status: Acute Code(s): K56.3 - GALLSTONE ILEUS SNOMED Code(s): 970833125 Plan: 1patient presented the hospital with sepsis in this patient who did have tachycardia elevated white count meeting criteria for SIRS/sepsis source is abdominal pain this patient was noted to have a small bowel ileus from a gallstone status post Enterolithotomy with the operative report did not mention any evidence of intra-abdominal abscess or any intra-abdominal cultures 2-patient is afebrile white count has normalized we will continue with Zosyn transition to oral Ceftin and Flagyl on discharge Dictation was produced using [employer] dictation software. please excuse any grammatical, word or spelling errors. Time with Patient: Less than 30
[2024-12-05 07:57] LABS: Basophils # (A) 0.05 10*3/uL (0.00-0.10); Basophils % (A) 0.6 %; Eosinophils # (A) 0.33 10*3/uL (0.04-0.35); Eosinophils % (A) 4.2 %; HGB 12.9 g/dL (13.0-17.0); Lymphocytes # (A) 2.63 10*3/uL (0.90-5.00); Lymphocytes % (A) 33.5 %; MCH 25.5 pg (27.0-32.0); MCHC 32.3 g/dL (32.0-37.0); MCV 79.2 fL (80.0-97.0); Mean Platelet Volume 9.1 fL (9.5-12.2); Monocytes # (A) 0.46 10*3/uL (0.20-1.00); Monocytes % (A) 5.9 %; Neutrophils # (A) 4.37 10*3/uL (1.80-7.70); Neutrophils % (A) 55.5 %; Platelet Count 372 10*3/uL (140-440); RBC 5.05 10*6/uL (4.40-5.60); RDW 13.2 % (11.5-14.5); WBC 7.86 10*3/uL (4.50-10.00)
[2024-12-05 08:12] LABS: ALT 36 U/L (4-49); AST 24 U/L (17-59); African American GFR (CKD) >90 (>60 ml/min/1.73 sqM); Albumin 3.6 g/dL (3.5-5.0); Albumin/Globulin Ratio 1.2; Alkaline Phosphatase 95 U/L (38-126); Anion Gap 10 mmol/L; Bilirubin,Unconjugated 0.4 mg/dL (0.0-1.1); Blood Urea Nitrogen 2 mg/dL (9-20); Calcium 8.7 mg/dL (8.4-10.2); Carbon Dioxide 25 mmol/L (22-30); Chloride 105 mmol/L (98-107); Globulin 3.1 g/dL; Glucose 123 mg/dL (74-99); Non-African American GFR(CKD) >90 (>60 ml/min/1.73 sqM); Potassium 3.4 mmol/L (3.5-5.1); Sodium 140 mmol/L (137-145); Total Bilirubin 0.6 mg/dL (0.2-1.3); Total Protein 6.7 g/dL (6.3-8.2)
--- NOTE | 2024-12-05 08:54 | P.PN ---
Subjective Progress Note Date: 12/05/24 Patient seen and examined at bedside. States pain is controlled. Feeling better. Having flatus. No bowel movement yet. Objective - Vital Signs Vital signs: Vital Signs Temp 97.4 F L 12/05/24 07:28 Pulse 83 12/05/24 07:28 Resp 15 12/05/24 07:28 BP 128/75 12/05/24 07:28 Pulse Ox 94 L 12/05/24 07:28 FiO2 Intake & Output 12/04/24 12/05/24 12/05/24 18:59 06:59 18:59 Intake Total 400 Output Total 1 Balance 399 Intake: Oral 400 Output: Stool 1 Other: Voiding Method Toilet Toilet # Voids 3 4 - Constitutional General appearance: Present: cooperative, no acute distress - Gastrointestinal Gastrointestinal Comment(s): Soft, nontender, nondistended, incision sites are healing well - Psychiatric Psychiatric: Present: A&O x's 3 - Labs CBC & Chem 7: 12/05/24 07:28 12/05/24 07:29 Labs: Abnormal Lab Results - Last 24 Hours (Table) 12/04/24 12/04/24 12/05/24 Range/Units 03:57 03:57 07:28 Hgb 12.2 L 12.9 L (13.0-17.0) g/dL Hct 38.4 L (39.6-50.0) % MCV 79.2 L (80.0-97.0) fL MCH 25.7 L 25.5 L (27.0-32.0) pg MCHC 31.8 L (32.0-37.0) g/dL MPV 9.1 L (9.5-12.2) fL Eosinophils # 0.39 H (0.04-0.35) X 10*3/uL Potassium 3.4 L (3.5-5.5) mmol/L Anion Gap 12.80 H (4.00-12.00) mmol/L BUN <3.5 L (9.0-27.0) mg/dL Creatinine (0.66-1.25) mg/dL BUN/Creatinine Ratio <5.83 L (12.00-20.00) Ratio Glucose (74-99) mg/dL Calcium 8.5 L (8.7-10.3) mg/dL Total Protein 5.9 L (6.2-8.2) g/dL Albumin 3.4 L (3.8-4.9) g/dL Albumin/Globulin Ratio 1.36 L (1.60-3.17) Ratio 05/25/25 Range/Units 07:29 Hgb (13.0-17.0) g/dL Hct (39.6-50.0) % MCV (80.0-97.0) fL MCH (27.0-32.0) pg MCHC (32.0-37.0) g/dL MPV (9.5-12.2) fL Eosinophils # (0.04-0.35) X 10*3/uL Potassium 3.4 L (3.5-5.5) mmol/L Anion Gap (4.00-12.00) mmol/L BUN 2 L (9.0-27.0) mg/dL Creatinine 0.58 L (0.66-1.25) mg/dL BUN/Creatinine Ratio (12.00-20.00) Ratio Glucose 123 H (74-99) mg/dL Calcium (8.7-10.3) mg/dL Total Protein (6.2-8.2) g/dL Albumin (3.8-4.9) g/dL Albumin/Globulin Ratio (1.60-3.17) Ratio Assessment and Plan Plan: Postoperative day #4, robotic enterolithotomy with gallstone retrieval. Appears to be improving. Advance to soft diet. Await further bowel function. Senna added. Continue to increase activity. Likely discharge in 24 to 48 hours.
[2024-12-05] MEDS: SENNOSIDES 8.6 MG TAB PO SCH (09:15)
--- NOTE | 2024-12-05 13:47 | P.PN ---
Subjective Progress Note Date: 12/05/24 patient is 34-year-old gentleman with no significant past medical history presents to the ER because of abdominal pain. Patient was having generalized abdominal pain associated with nausea and vomiting. Patient also having constipation. No complaint of any blood in the stools. There was no complaint of fever or chills. because of abdominal pain, patient came to the ER Initial lab work done in the ER showed WBC 16.59, hemoglobin 15.4, platelet count 450, sodium 139, potassium 5.4, BUN 11, creatinine 0.59, glucose 174, total protein 8.9, Urine analysis done showed negative nitrite, negative leukocyte Estrace. X-ray KUB done showed nonspecific bowel gas pattern with mildly dilated upper quadrant small bowel loop with associated air-fluid level. 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 Small bowel obstruction with possible gallstone ileus Patient admitted to internal medicine service 11/28. Patient seen and examined. Labs reviewed showed WBC 16.2, hemoglobin 13.8, sodium 140, potassium 4.1, carbon dioxide 23.2, BUN 8.6, creatinine 0.7, p atient states abdominal pain is slightly improved. Passing small amount of gas 11/29. Patient seen examined. Still having abdominal pain. HIDA scan done, results pending. 11/30. Patient seen examined. Patient had NG tube placed. Small bowel follow- through study showed mid to distal small bowel dilatation. Complaining abdominal pain. Still not passing gas. 12/01. Patient seen and examined. status post robotic Enterolithotomy and removal of gallstone. 12/02. Patient seen examined. Currently clear liquid diet. 12/03. Patient seen examined. States he feels better. Passing gas. Patient had a bowel movement as well 12/04. Patient seen examined. Laying comfortably in the bed. Currently on regular diet which was advanced this morning. Passing gas and had a bowel movement. 12/05. Patient seen examined. No acute issues overnight. Continues to feel better. REVIEW OF SYSTEMS: CONSTITUTIONAL: No fever, no malaise,. CARDIOVASCULAR: No chest pain, no palpitations, no syncope. PULMONARY: No shortness of breath, no cough, GASTROINTESTINAL: As mentioned above NEUROLOGICAL: No headaches, no weakness, PHYSICAL EXAMINATION: GENERAL: The patient is alert and oriented x3, not in any acute distress. Well developed, well nourished. HEENT: Pupils are round and equally reacting to light. EOMI. No scleral icterus. No conjunctival pallor. Normocephalic, atraumatic. No pharyngeal erythema. No thyromegaly. CARDIOVASCULAR: S1 and S2 present. No murmurs, rubs, or gallops. PULMONARY: Chest is clear to auscultation, no wheezing or crackles. ABDOMEN: Soft, nontender, nondistended, laparoscopic surgical incision seen MUSCULOSKELETAL: No joint swelling or deformity. EXTREMITIES: No cyanosis, clubbing, or pedal edema. NEUROLOGICAL: Gross neurological examination did not reveal any focal deficits. SKIN: No rashes. Assessment and plan GENERAL: The patient is alert and oriented x3, not in any acute distress. Well developed, well nourished. HEENT: Pupils are round and equally reacting to light. EOMI. No scleral icterus. No conjunctival pallor. Normocephalic, atraumatic. No pharyngeal erythema. No thyromegaly. CARDIOVASCULAR: S1 and S2 present. No murmurs, rubs, or gallops. PULMONARY: Chest is clear to auscultation, no wheezing or crackles. ABDOMEN: Soft, tenderness right upper quadrant, normoactive bowel sounds. No palpable organomegaly. MUSCULOSKELETAL: No joint swelling or deformity. EXTREMITIES: No cyanosis, clubbing, or pedal edema. NEUROLOGICAL: Gross neurological examination did not reveal any focal deficits. SKIN: No rashes. 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 Encourage ambulation Encourage use of I-S Continue antiemetics Continue IV Zosyn Currently regular diet Continue pain management per surgery Continue DVT prophylaxis per surgery ID following, recommendations noted from 12/04, recommend transitioning to oral Ceftin and Flagyl at discharge General Surgery following Labs and medication were reviewed.. Continue same treatment. Continue with symptomatic treatment. Resume home medication. Monitor labs and vitals. DVT and GI prophylaxis. Further recommendations as per clinical course of the patient Dictation was produced using [employer] dictation software. please excuse any gr ammatical, word or spelling errors. Objective - Vital Signs Vital signs: Vital Signs Temp 97.4 F L 12/05/24 07:28 Pulse 83 12/05/24 07:28 Resp 15 12/05/24 07:28 BP 128/75 12/05/24 07:28 Pulse Ox 94 L 12/05/24 07:28 FiO2 Intake & Output 12/04/24 12/05/24 12/05/24 18:59 06:59 18:59 Intake Total 400 Output Total 1 Balance 399 Intake: Oral 400 Output: Stool 1 Other: Voiding Method Toilet Toilet # Voids 3 4 - Labs CBC & Chem 7: 12/05/24 07:28 12/05/24 07:29 Labs: Abnormal Lab Results - Last 24 Hours (Table) 12/05/24 12/05/24 Range/Units 07:28 07:29 Hgb 12.9 L (13.0-17.0) g/dL MCV 79.2 L (80.0-97.0) fL MCH 25.5 L (27.0-32.0) pg MPV 9.1 L (9.5-12.2) fL Potassium 3.4 L (3.5-5.1) mmol/L BUN 2 L (9-20) mg/dL Creatinine 0.58 L (0.66-1.25) mg/dL Glucose 123 H (74-99) mg/dL
--- NOTE | 2024-12-05 15:05 | P.PN ---
Subjective Progress Note Date: 12/05/24 Principal diagnosis: Reason for follow-up is leukocytosis/gallstone ileus Patient is a 34-year-old male with a past medical history difficult for anxiety presenting to the hospital 5 days ago for evaluation of abdominal pain, patient be diagnosed with a gallstone ileus this patient was status post robotic enterolithotomy. On today's evaluation that is 12/05/2024, the patient continues to be afebrile, the patient is on room air and breathing comfortably, the Pt denies having any chest pain or cough, the patient denies having any abdominal pain no vomiting and having bowel movement. Patient white count 7.86, creatinine 0.58 Objective - Vital Signs Vital signs: Vital Signs Temp 97.4 F L 12/05/24 07:28 Pulse 83 12/05/24 07:28 Resp 15 12/05/24 07:28 BP 128/75 12/05/24 07:28 Pulse Ox 94 L 12/05/24 07:28 FiO2 Intake & Output 12/04/24 12/05/24 12/05/24 18:59 06:59 18:59 Intake Total 400 Output Total 1 Balance 399 Intake: Oral 400 Output: Stool 1 Other: Voiding Method Toilet Toilet # Voids 3 4 - Exam GENERAL DESCRIPTION: Middle-age man up in the room in no distress RESPIRATORY SYSTEM: Unlabored breathing , decreased breath sounds at bases HEART: S1 S2 regular rate and rhythm , ABDOMEN: Soft , no tenderness EXTREMITIES: No edema feet - Labs CBC & Chem 7: 12/05/24 07:28 12/05/24 07:29 Labs: Abnormal Lab Results - Last 24 Hours (Table) 12/05/24 12/05/24 Range/Units 07:28 07:29 Hgb 12.9 L (13.0-17.0) g/dL MCV 79.2 L (80.0-97.0) fL MCH 25.5 L (27.0-32.0) pg MPV 9.1 L (9.5-12.2) fL Potassium 3.4 L (3.5-5.1) mmol/L BUN 2 L (9-20) mg/dL Creatinine 0.58 L (0.66-1.25) mg/dL Glucose 123 H (74-99) mg/dL Assessment and Plan (1) Sepsis Current Visit: Yes Status: Acute Code(s): A41.9 - SEPSIS, UNSPECIFIED ORGANISM SNOMED Code(s): 98180308 (2) Gallstone ileus Current Visit: Yes Status: Acute Code(s): K56.3 - GALLSTONE ILEUS SNOMED Code(s): 20831652 (3) Gallstone ileus of small intestine Current Visit: Yes Status: Acute Code(s): K56.3 - GALLSTONE ILEUS SNOMED Code(s): 007952116 Plan: 1patient presented the hospital with sepsis in this patient who did have tachycardia elevated white count meeting criteria for SIRS/sepsis source is a bdominal pain this patient was noted to have a small bowel ileus from a gallstone status post Enterolithotomy with the operative report did not mention any evidence of intra-abdominal abscess or any intra-abdominal cultures 2-patient is afebrile white count has normalized 3patient currently being treated with Zosyn while inpatient and monitor clinical course closely Dictation was produced using [employer] dictation software. please excuse any grammatical, word or spelling errors.
--- NOTE | 2024-12-06 12:35 | P.DS ---
Providers Date of admission: 11/27/24 03:12 Attending physician: Sal Etienne DO Consults: 11/27/24 03:11 Consult Physician Urgent Consulting Provider: Natalya Briceno Consult Reason/Comments: medical manage. Do you want consulting provider notified?: Yes, Notify in am 12/01/24 07:50 Consult Physician Routine Consulting Provider: Trent Ramos Consult Reason/Comments: Abdominal abscess Do you want consulting provider notified?: Yes Primary care physician: Stated None Hospital Course: Patient was admitted w/ abdominal pain, ct demonstrates small bowel obstruction w/ gas around gallbladder. Patient was taken to the operating room for robotic enterotomy w/ removal of gallstone and primary ansatamosis. The patient was monitored for several days until he was tolerating diet and had appropriate bowel movement. Patient was discharge in stable condition to home. Patient Condition at Discharge: Good Plan - Discharge Summary New Discharge Prescriptions: No Action No Known Home Medications Discharge Medication List No Known Home Medications 11/27/24 [History] Follow up Appointment(s)/Referral(s): None,Stated [Primary Care Provider] - 1-2 days Andrea Mcqueen DO [Doctor of Osteopathic Medicine] - 2 Weeks Patient Instructions/Handouts: Exploratory Laparotomy (DC) Activity/Diet/Wound Care/Special Instructions: ok for regular diet ok to shower ok to ambulate no heavy lifting greater than 25lbs Discharge/Stand Alone Forms: Area PCPs Discharge Disposition: HOME SELF-CARE
[2024-12-06 13:41] VITALS: BP 150/82; PULSE 85; RESP 15; TEMP 97.9
--- NOTE | 2024-12-06 14:53 | P.PN ---
Subjective Progress Note Date: 12/06/24 Principal diagnosis: Reason for follow-up is leukocytosis/gallstone ileus Patient is a 34-year-old male with a past medical history difficult for anxiety presenting to the hospital 5 days ago for evaluation of abdominal pain, patient be diagnosed with a gallstone ileus this patient was status post robotic enterolithotomy. On today's evaluation that is 12/06/2024, Patient is afebrile patient is currently on room air and denies having any shortness of breath, the patient denies any chest pain or cough, the patient denies any nausea vomiting abdominal pain is currently controlled having bowel movement. No new lab has been obtained today Objective - Vital Signs Vital signs: Vital Signs Temp 97.9 F 12/06/24 13:41 Pulse 85 12/06/24 13:41 Resp 15 12/06/24 13:41 BP 150/82 12/06/24 13:41 Pulse Ox 93 L 12/06/24 13:41 FiO2 Intake & Output 12/05/24 12/06/24 12/06/24 18:59 06:59 18:59 Intake Total 220 Balance 220 Intake: Intake, IV Titration 220 Amount Lactated Ringers 1,000 ml 120 @ 20 mls/hr IV .Q24H [facility] Rx#:[id number] Piperacillin-Tazobactam 3 100 .375 gm In Sodium Chloride 0.9% 100 ml @ 25 mls/hr IVPB Q8HR [facility] Rx# :[id number] Other: Voiding Method Toilet # Voids 3 2 # Bowel Movements 1 - Exam GENERAL DESCRIPTION: Middle-age man up in the room in no distress RESPIRATORY SYSTEM: Unlabored breathing , decreased breath sounds at bases HEART: S1 S2 regular rate and rhythm , ABDOMEN: Soft , no tenderness EXTREMITIES: No edema feet - Labs CBC & Chem 7: 12/05/24 07:28 12/05/24 07:29 Assessment and Plan (1) Sepsis Status: Acute Code(s): A41.9 - SEPSIS, UNSPECIFIED ORGANISM SNOMED Code(s): 97900909 (2) Gallstone ileus Status: Acute Code(s): K56.3 - GALLSTONE ILEUS SNOMED Code(s): 52367442 (3) Gallstone ileus of small intestine Status: Acute Code(s): K56.3 - GALLSTONE ILEUS SNOMED Code(s): 544536486 Plan: 1patient presented the hospital with sepsis in this patient who did have tachycardia elevated white count meeting criteria for SIRS/sepsis source is abdominal pain this patient was noted to have a small bowel ileus from a gallstone status post Enterolithotomy with the operative report did not mention any evidence of intra-abdominal abscess or any intra-abdominal cultures 2-patient is afebrile white count has normalized patient is actually overall improvement patient has been cleared for discharge by general surgery prescription for oral Ceftin and Flagyl sent to the pharmacy Question answered Dictation was produced using [employer] dictation software. please excuse any grammatical, word or spelling errors. Time with Patient: Less than 30
--- NOTE | 2024-12-17 09:03 | CDI ---
Documentation Clarification Form Date: 12/02/2024 01:59:00 PM From: Shanda Palmer RN CDDS Phone: [phone] Admit Date: 11/27/2024 03:12:00 AM Patient Name: Willy Funez Visit Number: [id number] Discharge Date: 12/06/2024 02:25:00 PM ATTENTION: The Clinical Documentation Specialists (CDI) and [facility] Coding Staff appreciate your assistance in clarifying documentation. Please respond to the clarification below the line at the bottom and electronically sign. The CDI & [facility] Coding staff will review the response and follow-up if needed. Please note: Queries are made part of the Legal Health Record. If you have any questions, please contact the author of this message via ITS. Doctor: Sony Quintanilla The patient has Sepsis documented in the ID consult, 12/01. Based on this information and the findings below, is there an additional diagnosis that is clinically appropriate for this patient? History/Risk Factors: 34 year old male presents to the ED with abdominal pain diffuse and stabbing with associated postprandial nausea/vomiting. No reported medical history. 11/27. Clinical Indicators: 11/26 Wbc 16.59 11/26, VVS: B/P 116/76 HR 77, RR 17, SpO2 98% ra 12/01 Wbc 13.56 12/01 VSS: B/P 110/62, HR 91, RR 17, SpO2 94% ra 11/27, CT ABD: Appears to be a small gallbladder with an abnormal connection to the adjacent duodenum. 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 Small bowel obstruction. 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 Treatment: ID Consult: 12/01: patient presented the hospital with sepsis in this patient who did have tachycardia elevated white count meeting criteria for SIRS/sepsis source is abdominal pain this patient was noted to have a small bowel ileus from a gallstone status post Enterolithotomy with the operative report did not mention any evidence of intra-abdominal abscess or any intra-abdominal cultures Medications: 11/27 Tylenol IVPB x 1, Antibiotics: 11/27 Rocephin IV x 1; 11/27 Metronidazole IVPB x 1; 11/27 Zosyn IVPB Q8H IV Bolus: 11/26 0.9NS 1L IVF x 1 Is there an additional diagnosis that is clinically appropriate for this patient? [ ] Sepsis, present on admission [ ] Sepsis, developed during stay, not present on admission [ ] Sepsis ruled out [ ] No additional diagnosis/not clinically significant [ ] Other, please specify [ ] Unable to determine SIRS Criteria: 2 or more of the following may indicate SIRS Temperature < 96.8F (36C) or > 101.0F (38.3C) Heart Rate > 90 bpm Respiratory Rate > 20 breaths/min or PaCO2 < 32 mmHg White Blood Cell Count > 12,000 or < 4,000 cells/mm3 or > 10% bands (Template Last Reviewed: July 2022) MTDD
--- NOTE | 2024-12-22 14:14 | CDI ---
Documentation Clarification Form Date: 12/02/2024 01:59:00 PM From: Shanda Palmer RN CCDS Phone: [phone] Admit Date: 11/27/2024 03:12:00 AM Patient Name: Willy Funez Visit Number: [id number] Discharge Date: 12/06/2024 02:25:00 PM ATTENTION: The Clinical Documentation Specialists (CDI) and [facility] Coding Staff appreciate your assistance in clarifying documentation. Please respond to the clarification below the line at the bottom and electronically sign. The CDI & [facility] Coding staff will review the response and follow-up if needed. Please note: Queries are made part of the Legal Health Record. If you have any questions, please contact the author of this message via ITS. Doctor: Sony Quintanilla The patient has Sepsis documented in the ID consult, 12/01. Based on this information and the findings below, is there an additional diagnosis that is clinically appropriate for this patient? History/Risk Factors: 34 year old male presents to the ED with abdominal pain diffuse and stabbing with associated postprandial nausea/vomiting. No reported medical history. 11/27. Clinical Indicators: 11/26 Wbc 16.59 11/26, VVS: B/P 116/76 HR 77, RR 17, SpO2 98% ra 12/01 Wbc 13.56 12/01 VSS: B/P 110/62, HR 91, RR 17, SpO2 94% ra 11/27, CT ABD: Appears to be a small gallbladder with an abnormal connection to the adjacent duodenum. 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 Small bowel obstruction. 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 Treatment: ID Consult: 12/01: patient presented the hospital with sepsis in this patient who did have tachycardia elevated white count meeting criteria for SIRS/sepsis source is abdominal pain this patient was noted to have a small bowel ileus from a gallstone status post Enterolithotomy with the operative report did not mention any evidence of intra-abdominal abscess or any intra-abdominal cultures Medications: 11/27 Tylenol IVPB x 1, Antibiotics: 11/27 Rocephin IV x 1; 11/27 Metronidazole IVPB x 1; 11/27 Zosyn IVPB Q8H IV Bolus: 11/26 0.9NS 1L IVF x 1 Is there an additional diagnosis that is clinically appropriate for this patient? [ x ] Sepsis, present on admission [ ] Sepsis, developed during stay, not present on admission [ ] Sepsis ruled out [ ] Septic Shock [ ] No additional diagnosis/not clinically significant [ ] Other, please specify [ ] Unable to determine SIRS Criteria: 2 or more of the following may indicate SIRS Temperature < 96.8F (36C) or > 101.0F (38.3C) Heart Rate > 90 bpm Respiratory Rate > 20 breaths/min or PaCO2 < 32 mmHg White Blood Cell Count > 12,000 or < 4,000 cells/mm3 or > 10% bands (Template Last Reviewed: July 2022) MTDD
== END 2024-12-06 14:25 | disposition home or self-care (01) | DRG 854 ==
LOC: EC 18:59 → 4SSUR 11-27 03:12
PROVIDERS: ADMIT Surgery; ATTEND Surgery
PROC: 8E0W4CZ Robotic Assisted Procedure of Trunk Region, Percutaneous Endoscopic Approach (ICD-10-PCS; principal; 2024-11-30 11:20)
PROC: 0DC Gastrointestinal System, Extirpation (ICD-10-PCS; principal; 2024-11-30 11:20)
PROC: 0D9670Z Drainage of Stomach with Drainage Device, Via Natural or Artificial Opening (ICD-10-PCS; 2024-12-01)
DX: A41.9 Sepsis, unspecified organism (principal); K56.3 Gallstone ileus; K82.3 Fistula of gallbladder; L02.211 Cutaneous abscess of abdominal wall; K59.00 Constipation, unspecified; F41.9 Anxiety disorder, unspecified; Z28.21 Immunization not carried out because of patient refusal
CPT/HCPCS: 36415; 71045; 74018; 74176; 74177; 74250; 78226; 80048; 80053; 80076; 81001; 82150; 83605; 83690; 84132; 85025; 88300; 96365; 96366; 96367; 96375; 99285